=== PATIENT | female | born 1975 | race Caucasian/White ===

== ENCOUNTER 2020-03-06 08:02 | Emergency (ER) | payer MEDICAID ==
[~2020-03-06] VITALS: Ht 160 cm; Wt 81.5 kg
[2020-03-06] MEDS ORDERED: normal saline 1000ML IV soln IVB ONE (08:45)
[2020-03-06] MEDS ORDERED: pantoprazole 40 MG vial IV ONE (08:45)
[2020-03-06] MEDS ORDERED: ondansetron/PF 4mg/2ml inj IV ONE (08:45)
[2020-03-06] MEDS ORDERED: morphine 4 MG/ML inj SYRINge IV PRN (08:45)
[2020-03-06] MEDS ORDERED: famotidine/PF 10 mg/ml inj IV ONE (08:45)
[2020-03-06] MEDS ORDERED: LORazepam 2 mg/ml vial IV ONE (08:45)
[2020-03-06 08:56] LABS: CLARITY,URINE CLOUDY (Clear); COLOR,URINE YELLOW (Yellow); GLUCOSE, URINE NEGATIVE (Neg); KETONES,URINE NEGATIVE (Neg); LEUKOCYTE ESTERASE ,URINE SMALL (Neg); NITRITES, URINE POSITIVE (Neg); OCCULT BLOOD,URINE NEGATIVE (Neg); PROTEIN,URINE NEGATIVE (Neg); UROBILINOGEN,URINE 0.2 E.U/dL (0.2-1.0)
[2020-03-06 08:57] LABS: UA COLLECTION TYPE CLN CATCH MIDSTREAM; URINE HCG NEGATIVE (NEG)
[2020-03-06 09:03] LABS: AMORPHOUS PHOSPHATES 3+; BACTERIA,URINE 3+ /HPF (Neg); SQUAMOUS EPITHELIAL CELL,UR MODERATE /LPF (FEW)
[2020-03-06 09:04] LABS: WBC,URINE 30-50 /HPF (0-4)
[2020-03-06 09:05] LABS: RBC,URINE 0-2 /HPF (0-2); WBC CLUMPS,URINE FEW /HPF (NEGATIVE)
[2020-03-06 10:38] LABS: BASOPHILS % (AUTO) 0.5 % (0-1); EOSINOPHILS # (AUTO) 0.1 X10'3 (0-0.9); EOSINOPHILS % (AUTO) 0.6 % (0-6); HEMATOCRIT 41.7 % (35.0-45.0); HEMOGLOBIN 13.8 g/dl (12.0-16.0); LYMPHOCYTES % (AUTO) 12.3 % (21-51); MEAN CORPUSCULAR HEMOGLOBIN 30.2 PG (27.0-31.0); MEAN CORPUSCULAR HGB CONC 33.1 g/dL (33.0-36.5); MEAN CORPUSCULAR VOLUME 91.4 FL (78-98); MEAN PLATELET VOLUME 8.2 FL (7.4-10.4); MONOCYTES # (AUTO) 0.5 X10'3 (0-0.9); MONOCYTES % (AUTO) 6.2 % (2-12); NEUTROPHILS # (AUTO) 6.8 X10'3 (1.8-7.7); NEUTROPHILS % (AUTO) 80.4 % (42-75); PLATELET COUNT 280 X10'3 (140-440); RED BLOOD COUNT 4.57 X10'6 (4.20-5.60); RED CELL DISTRIBUTION WIDTH 13.3 % (11.5-14.5); WHITE BLOOD COUNT 8.4 X10'3 (4.5-11.0)
[2020-03-06 10:45] LABS: ALANINE AMINOTRANSFERASE 26 U/L (12-78); ALBUMIN 3.5 G/DL (3.4-5.0); ALBUMIN/GLOBULIN RATIO 0.9 (1.1-1.5); ALKALINE PHOSPHATASE 89 IU/L (46-116); ANION GAP 5 (8-16); ASPARTATE AMINO TRANSFERASE 32 U/L (10-37); BILIRUBIN,TOTAL 0.3 MG/DL (0.1-1.0); BLOOD UREA NITROGEN 15 MG/DL (7-18); BUN/CREATININE RATIO 15.8 (6.6-38.0); CALCIUM 8.3 MG/DL (8.5-10.1); CHLORIDE 105 MMOL/L (99-107); CREATININE 0.95 MG/DL (0.40-0.90); GLUCOSE 98 MG/DL (70-104); LIPASE 276 U/L (73-393); POTASSIUM 4.1 MMOL/L (3.5-5.1); SODIUM 136 MMOL/L (135-145); TOTAL CARBON DIOXIDE 25.9 MMOL/L (24-32); TOTAL PROTEIN 7.5 G/DL (6.4-8.2); eGFR 64 ML/MIN
[2020-03-06] MEDS ORDERED: LEVO500T2 PO (11:55)
[2020-03-06] MEDS ORDERED: HYDR-4353 PO (11:55)
[2020-03-06] MEDS ORDERED: ONDA4TAB6 PO (11:55)
[2020-03-06] MEDS ORDERED: KETO10TA2 PO (11:55)
[2020-03-06] MEDS ORDERED: ketorolac tromethamine 15mg/ml inj. IV ONE (12:05)
[2020-03-06] MEDS ORDERED: levoFLOXACIN 500mg tablet PO ONE (12:50)
[2020-03-06 13:39] VITALS: BP 112/74
[2020-03-07] MEDS ORDERED: levoFLOXACIN 500mg tablet PO SCH (11:00)
== END 2020-03-06 13:41 | disposition home or self-care (01) ==
LOC: ER 08:03
DX: N20.0 Calculus of kidney (principal); N39.0 Urinary tract infection, site not specified; K21.9 Gastro-esophageal reflux disease without esophagitis; F15.90 Other stimulant use, unspecified, uncomplicated; Z98.51 Tubal ligation status; Z98.890 Other specified postprocedural states; Z79.899 Other long term (current) drug therapy
CPT/HCPCS: 36415; 71045; 74176; 80053; 81001; 81025; 83605; 83690; 85025; 87077; 87088; 87186; 96361; 96374; 96375; 99285; C9113; J1885; J2060; J2270; J2405; J3490; J7030

== ENCOUNTER 2021-04-14 20:28 | Emergency (ER) | payer MEDICAID ==
[~2021-04-14] VITALS: Ht 160 cm; Wt 77.2 kg
[~2021-04-14 20:28] MED LIST: KETO10TA2 PO; ONDA4TAB6 PO
--- NOTE | 2021-04-14 21:32 | NUR ---
POISON CONTROL HAS BEEN CALLED. INSTRUCTED TO OBSERVE 6HR SINCE TIME OF ARRIVAL. ORDERS FOR EKG, TYLENOL LEVELS NOW AND AT 2330. ETOH LEVELS, INR, METABOLIC PANEL, AST/ALT, AND ASA. - [phone] - [id number].
[2021-04-14 21:54] LABS: BASOPHILS # (AUTO) 0.1 X10'3 (0-0.2); BASOPHILS % (AUTO) 0.5 % (0-1); EOSINOPHILS # (AUTO) 0.3 X10'3 (0-0.9); MEAN PLATELET VOLUME 9.1 FL (7.4-10.4); NEUTROPHILS # (AUTO) 9.7 X10'3 (1.8-7.7); WHITE BLOOD COUNT 12.4 X10'3 (4.5-11.0)
[2021-04-14 21:56] LABS: EOSINOPHILS % (AUTO) 2.6 % (0-6); HEMATOCRIT 35.5 % (35.0-45.0); HEMOGLOBIN 11.6 g/dl (12.0-16.0); LYMPHOCYTES # (AUTO) 1.7 X10'3 (1.1-4.8); LYMPHOCYTES % (AUTO) 13.5 % (21-51); MEAN CORPUSCULAR HEMOGLOBIN 27.8 PG (27.0-31.0); MEAN CORPUSCULAR HGB CONC 32.8 g/dL (33.0-36.5); MEAN CORPUSCULAR VOLUME 84.7 FL (78-98); MONOCYTES # (AUTO) 0.7 X10'3 (0-0.9); MONOCYTES % (AUTO) 5.6 % (2-12); NEUTROPHILS % (AUTO) 77.8 % (42-75); PLATELET COUNT 208 X10'3 (140-440); RED BLOOD COUNT 4.19 X10'6 (4.20-5.60); RED CELL DISTRIBUTION WIDTH 15.7 % (11.5-14.5)
[2021-04-14 21:58] LABS: ALANINE AMINOTRANSFERASE 20 U/L (12-78); ALBUMIN 3.3 G/DL (3.4-5.0); ALBUMIN/GLOBULIN RATIO 0.9 (1.1-1.5); ALKALINE PHOSPHATASE 99 IU/L (46-116); ANION GAP 5 (8-16); ASPARTATE AMINO TRANSFERASE 14 U/L (10-37); BILIRUBIN,TOTAL 0.2 MG/DL (0.1-1.0); BLOOD UREA NITROGEN 17 MG/DL (7-18); BUN/CREATININE RATIO 16.7 (6.6-38.0); CALCIUM 8.8 MG/DL (8.5-10.1); CHLORIDE 106 MMOL/L (99-107); CREATININE 1.02 MG/DL (0.40-0.90); GLUCOSE 96 MG/DL (70-104); POTASSIUM 3.9 MMOL/L (3.5-5.1); SODIUM 138 MMOL/L (135-145); TOTAL CARBON DIOXIDE 27.4 MMOL/L (24-32); TOTAL PROTEIN 7.1 G/DL (6.4-8.2); eGFR 58 ML/MIN
[2021-04-14 22:07] LABS: ETHANOL < 0.010 GM/DL (0.0-0.010)
[2021-04-14 22:15] LABS: ACETAMINOPHEN < 2.0 UG/ML (10-30)
[2021-04-14 23:06] LABS: CLARITY,URINE CLOUDY (Clear); COLOR,URINE YELLOW (Yellow); GLUCOSE, URINE NEGATIVE (Neg); KETONES,URINE NEGATIVE (Neg); OCCULT BLOOD,URINE NEGATIVE (Neg); PROTEIN,URINE NEGATIVE (Neg); UA COLLECTION TYPE CLN CATCH MIDSTREAM; URINE HCG NEGATIVE (NEG)
[2021-04-14 23:07] LABS: LEUKOCYTE ESTERASE ,URINE MODERATE (Neg); NITRITES, URINE POSITIVE (Neg); UROBILINOGEN,URINE 0.2 E.U/dL (0.2-1.0)
[2021-04-14 23:08] LABS: BACTERIA,URINE 4+ /HPF (Neg); RBC,URINE 0-2 /HPF (0-2); SQUAMOUS EPITHELIAL CELL,UR FEW /LPF (FEW); WBC CLUMPS,URINE MODERATE /HPF (NEGATIVE); WBC,URINE 50-100 /HPF (0-4)
--- NOTE | 2021-04-14 23:10 | NUR ---
PT IS SLEEPING COMFORTABLY, EQUAL RISE AND FALL OF CHEST
[2021-04-14 23:17] LABS: URINE AMPHETAMINE SCREEN POSITIVE (Neg); URINE BARBITUATE SCREEN NEGATIVE (Neg); URINE BENZODIAZEPINES SCREEN NEGATIVE (Neg); URINE CANNABINOID SCREEN POSITIVE (Neg); URINE COCAINE SCREEN NEGATIVE (Neg); URINE METHADONE SCREEN NEGATIVE (Neg); URINE OPIATE SCREEN POSITIVE (Neg); URINE PHENCYCLIDINE SCREEN NEGATIVE (Neg)
--- NOTE | 2021-04-15 00:30 | NUR ---
MD JENNINGS PERFORMED STRAIGHT STICK FROM RIGHT GROIN TO OBTAIN LABWORK REQUIRED. MULTIPLE ATTEMPTS WERE DONE BY PHLEBOTOMY AND 2 NURSES WITH ULTRASOUND.
--- NOTE | 2021-04-15 01:11 | NUR ---
CALL BACK FROM POISON CONTROL. INSTRUCTED TO GIVE MUCOMYST IF ACETAMINOPHEN LEVELS ARE EQUAL TO OR HIGHER THAN 120. AWARE
--- NOTE | 2021-04-15 02:09 | NUR ---
PT HAD SANDWICH AND APPLE JUICE. NOW RESTING COMFORTABLY. EQUAL RISE AND FALL OF CHEST.
--- NOTE | 2021-04-15 03:46 | NUR ---
PT IS SLEEPING COMFORTABLY WITH BLANKET. EQUAL RISE AND FALL OF CHEST.
[2021-04-15] MEDS ORDERED: cephalexin 500mg capsule PO ONE (08:00)
--- NOTE | 2021-04-15 08:12 | NUR ---
Spoke with Arnaud from Poison control, reviewed pts current tylenol level and poison control stated they would close the case.
--- NOTE | 2021-04-15 08:34 | NUR ---
Pt bed linens changed. Pt asssisted to BR to complete ADLs and adelaida care
--- NOTE | 2021-04-15 10:18 | NUR ---
Pt noted asleep resting comfortably, no distress noted
--- NOTE | 2021-04-15 12:44 | NUR ---
Patient is noted resting comfortably
--- NOTE | 2021-04-15 15:04 | NUR ---
Pt asleep, resting comfortably no distress noted
--- NOTE | 2021-04-15 17:48 | NUR ---
Pt noted resting comfortably, no distress noted
[2021-04-15] MEDS ORDERED: nicotine 21mg patch - 24 hr TD ONE (20:40)
--- NOTE | 2021-04-15 20:45 | NUR ---
Pt talking to mental health skin pass operator. ANNETTE.
--- NOTE | 2021-04-15 22:00 | NUR ---
Pt is asked for some tradzone to help with sleep. Pt is up walking around. NAD. Will talk to MD about medication.
--- NOTE | 2021-04-16 | NUR ---
Pt is currently sleeping. NAD.
--- NOTE | 2021-04-16 01:18 | NUR ---
Placed a call to [facility] at [phone]. Spoke to MICKY Virk. This nurse stated that they will call back in the morning with the information, as to who the accepting the doctor will be.
[2021-04-16] MEDS ORDERED: traZODone 50mg tablet PO SCH (01:33)
--- NOTE | 2021-04-16 02:00 | NUR ---
Pt is awake and states that she can not sleep. Pt asked for a cup of coffee. A cup of coffee was given. NAD.
--- NOTE | 2021-04-16 04:50 | NUR ---
Pt states that she can not sleep, due to another patient distrubing the peace. Pt is up at the nurse's station talking with the nurses.
[2021-04-16 05:45] VITALS: BP 103/77
--- NOTE | 2021-04-16 06:29 | NUR ---
Patient is awake in bed and keeps asking to go smoke. RN advises patient that this is not allowed. Patient leaving this morning to go to [facility]. Patient is asking for Trazodone. RN advised patient that we don't give sleeping medication in the morning. Patient verbalized understanding. Continue to monitor.
--- NOTE | 2021-04-16 06:39 | NUR ---
Patient poored her water on her bed because she wants security to come and give her a ciggarette and let her use the phone. Dr Peterson aware. Continue to monitor.
--- NOTE | 2021-04-16 06:40 | NUR ---
Patient has a coloring book and she tore out pages to sit on. RN gave patient a clean set of sheets so she can change her bed. Continue to monitor.
--- NOTE | 2021-04-16 06:51 | NUR ---
Patient againg asking for a cigarette. Continue to monitor.
--- NOTE | 2021-04-16 07:53 | NUR ---
Patient awake and laying in bed. Patient talking softly about going home and having her mom, sister or brother pick her up. Patient is pending admit to [facility]. RN performed a Covid swab and awaiting results. Continue to monitor.
--- NOTE | 2021-04-16 08:10 | NUR ---
Patient eating breakfast. No distress observed. Continue to monitor.
--- NOTE | 2021-04-16 09:15 | NUR ---
Patient sleeping supine. No distress observed. Continue to monitor.
== END 2021-04-16 10:20 ==
LOC: ER 20:28
DX: T14.91XA Suicide attempt, initial encounter (principal); N30.00 Acute cystitis without hematuria; K21.9 Gastro-esophageal reflux disease without esophagitis; T39.1X2A Poisoning by 4-Aminophenol derivatives, intentional self-harm, initial encounter; Z98.51 Tubal ligation status; Y92.89 Other specified places as the place of occurrence of the external cause; Z20.822 Contact with and (suspected) exposure to COVID-19; F15.10 Other stimulant abuse, uncomplicated
CPT/HCPCS: 36415; 80053; 80305; 80320; 80329; 81001; 81025; 84443; 85025; 85610; 87635; 93005; 99285; C9803

== ENCOUNTER 2022-04-02 11:52 | Emergency (ER) | payer MEDICAID ==
[~2022-04-02] VITALS: Ht 157.5 cm; Wt 68.0 kg
[2022-04-02] MEDS ORDERED: ondansetron 4mg rapidly disintigrating tab PO ONE (13:40)
[2022-04-02] MEDS ORDERED: acetaminophen 325mg tablet PO ONE (13:40)
[2022-04-02] MEDS ORDERED: morphine 4 MG/ML inj SYRINge IV ONE (13:50)
[2022-04-02] MEDS ORDERED: CefTRIAXone/D5W-Rocephin 1gm 50 ML IV ONE (14:55)
[2022-04-02 15:17] LABS: URINE HCG NEGATIVE (NEG)
[2022-04-02 15:32] LABS: COLOR,URINE YELLOW (Yellow); GLUCOSE, URINE NEGATIVE (Neg); KETONES,URINE TRACE mg/dl (Neg); LEUKOCYTE ESTERASE ,URINE MODERATE (Neg); NITRITES, URINE POSITIVE (Neg); OCCULT BLOOD,URINE SMALL (Neg); PROTEIN,URINE 30 mg/dl (Neg); UROBILINOGEN,URINE 0.2 E.U/dL (0.2-1.0)
[2022-04-02 15:43] LABS: BASOPHILS # (AUTO) 0.1 X10'3 (0-0.2); BASOPHILS % (AUTO) 0.4 % (0-1); LYMPHOCYTES # (AUTO) 1.3 X10'3 (1.1-4.8); MEAN PLATELET VOLUME 7.6 FL (7.4-10.4); NEUTROPHILS % (AUTO) 83.6 % (42-75); RED CELL DISTRIBUTION WIDTH 20.5 % (11.5-14.5); WHITE BLOOD COUNT 23.7 X10'3 (4.5-11.0)
[2022-04-02 15:45] LABS: EOSINOPHILS # (AUTO) 0.1 X10'3 (0-0.9); EOSINOPHILS % (AUTO) 0.4 % (0-6); HEMATOCRIT 24.7 % (35.0-45.0); HEMOGLOBIN 7.5 g/dl (12.0-16.0); LYMPHOCYTES % (AUTO) 5.7 % (21-51); MEAN CORPUSCULAR HEMOGLOBIN 20.9 PG (27.0-31.0); MEAN CORPUSCULAR HGB CONC 30.3 g/dL (33.0-36.5); MEAN CORPUSCULAR VOLUME 69.1 FL (78-98); MONOCYTES # (AUTO) 2.4 X10'3 (0-0.9); MONOCYTES % (AUTO) 9.9 % (2-12); NEUTROPHILS # (AUTO) 19.9 X10'3 (1.8-7.7); PLATELET COUNT 359 X10'3 (140-440); RED BLOOD COUNT 3.57 X10'6 (4.20-5.60)
[2022-04-02] MEDS ORDERED: normal saline 1000ml 1,000 ML IV ONE (15:45)
[2022-04-02 15:51] LABS: UA COLLECTION TYPE CLN CATCH MIDSTREAM
[2022-04-02 15:52] LABS: CLARITY,URINE CLOUDY (Clear)
[2022-04-02 15:54] LABS: WBC,URINE 30-50 /HPF (0-4)
[2022-04-02 15:55] LABS: ALANINE AMINOTRANSFERASE 20 U/L (12-78); ALBUMIN 2.7 G/DL (3.4-5.0); ALBUMIN/GLOBULIN RATIO 0.7 (1.1-1.5); ALKALINE PHOSPHATASE 85 IU/L (46-116); ANION GAP 8 (8-16); ASPARTATE AMINO TRANSFERASE 19 U/L (10-37); BILIRUBIN,TOTAL 0.3 MG/DL (0.1-1.0); BLOOD UREA NITROGEN 15 MG/DL (7-18); CALCIUM 7.9 MG/DL (8.5-10.1); CHLORIDE 103 MMOL/L (99-107); CREATININE 1.25 MG/DL (0.40-0.90); GLUCOSE 99 MG/DL (70-104); LIPASE 56 U/L (73-393); POTASSIUM 3.2 MMOL/L (3.5-5.1); SODIUM 136 MMOL/L (135-145); TOTAL CARBON DIOXIDE 24.6 MMOL/L (24-32); TOTAL PROTEIN 6.5 G/DL (6.4-8.2); eGFR 46 ML/MIN
[2022-04-02 15:55] LABS: BACTERIA,URINE 4+ /HPF (Neg); SQUAMOUS EPITHELIAL CELL,UR NONE SEEN /LPF (FEW); TRANSITIONAL EPI CELLS,URINE FEW /HPF; WBC CLUMPS,URINE MODERATE /HPF (NEGATIVE)
[2022-04-02] MEDS ORDERED: CEPH-585 PO (17:15)
[2022-04-02] MEDS ORDERED: ONDA8TAB13 PO (17:15)
[2022-04-02] MEDS ORDERED: normal saline 1000ML IV soln IVB ONE (17:25)
[2022-04-02 18:39] VITALS: BP 91/50
[2022-04-02 19:43] LABS: ANISOCYTOSIS 3+; MICROCYTOSIS 2+; PLATELET ESTIMATE NORMAL
[2022-04-02 19:44] LABS: POLYCHROMASIA 1+; SCHISTOCYTES FEW
== END 2022-04-02 18:41 | disposition home or self-care (01) ==
LOC: ER 11:53
DX: N39.0 Urinary tract infection, site not specified (principal); K59.00 Constipation, unspecified; K21.9 Gastro-esophageal reflux disease without esophagitis; F15.20 Other stimulant dependence, uncomplicated; Z98.890 Other specified postprocedural states; Z98.51 Tubal ligation status
CPT/HCPCS: 36415; 74176; 80053; 81001; 81025; 83690; 85008; 85025; 87077; 87088; 87186; 96365; 96375; 99284; J0696; J2270; J7030

== ENCOUNTER 2022-07-08 09:28 | Emergency (ER) | payer MEDICAID ==
[~2022-07-08] VITALS: Ht 160 cm; Wt 68.0 kg
[~2022-07-08 09:28] MED LIST changes: +CEPH-585 PO; +ONDA8TAB13 PO
--- NOTE | 2022-07-08 09:57 | NUR ---
pt is difficult stick aware of pt and complaint. he will see pt in lab draw station
[2022-07-08 10:32] LABS: ALANINE AMINOTRANSFERASE 28 U/L (12-78); ALBUMIN 3.6 G/DL (3.4-5.0); ALBUMIN/GLOBULIN RATIO 0.9 (1.1-1.5); ALKALINE PHOSPHATASE 91 IU/L (46-116); ANION GAP 12 (8-16); ASPARTATE AMINO TRANSFERASE 42 U/L (10-37); BILIRUBIN,TOTAL 0.2 MG/DL (0.1-1.0); BLOOD UREA NITROGEN 12 MG/DL (7-18); CALCIUM 8.6 MG/DL (8.5-10.1); CHLORIDE 103 MMOL/L (99-107); CREATININE 0.92 MG/DL (0.40-0.90); GLUCOSE 87 MG/DL (70-104); LIPASE 196 U/L (73-393); POTASSIUM 4.8 MMOL/L (3.5-5.1); SODIUM 138 MMOL/L (135-145); TOTAL CARBON DIOXIDE 22.9 MMOL/L (24-32); TOTAL PROTEIN 7.7 G/DL (6.4-8.2); eGFR 65 ML/MIN
[2022-07-08 10:48] LABS: CLARITY,URINE CLOUDY (Clear); COLOR,URINE YELLOW (Yellow); GLUCOSE, URINE NEGATIVE (Neg); KETONES,URINE NEGATIVE (Neg); LEUKOCYTE ESTERASE ,URINE NEGATIVE (Neg); NITRITES, URINE POSITIVE (Neg); OCCULT BLOOD,URINE NEGATIVE (Neg); PH,URINE 7.5 (4.8-8.0); PROTEIN,URINE NEGATIVE (Neg); UROBILINOGEN,URINE 0.2 E.U/dL (0.2-1.0)
[2022-07-08 10:49] LABS: UA COLLECTION TYPE CLN CATCH MIDSTREAM
[2022-07-08 10:50] LABS: URINE HCG NEGATIVE (NEG)
[2022-07-08 10:54] LABS: BACTERIA,URINE 4+ /HPF (Neg); MUCUS STRANDS NONE SEEN /LPF (Neg); RBC,URINE NONE SEEN /HPF (0-2); SQUAMOUS EPITHELIAL CELL,UR FEW /LPF (FEW); WBC CLUMPS,URINE FEW /HPF (NEGATIVE)
[2022-07-08] MEDS ORDERED: mag hydrox/Alum hydrox/simeth 30ml oral suspension PO ONE (11:00)
[2022-07-08] MEDS ORDERED: LIDOcaine Viscous 15ml cup MM PRN (11:00)
[2022-07-08] MEDS ORDERED: CefTRIAXone 1000mg IM Kit (w/lidocaine diluent) IM ONE (11:15)
[2022-07-08] MEDS ORDERED: NITR100C6 PO (11:17)
[2022-07-08] MEDS ORDERED: CefTRIAXone/D5W-Rocephin 1gm 50 ML IV ONE (11:20)
[2022-07-08 11:42] LABS: BASOPHILS # (AUTO) 0.1 X10'3 (0-0.2); BASOPHILS % (AUTO) 0.8 % (0-1); EOSINOPHILS % (AUTO) 0.6 % (0-6); HEMATOCRIT 32.4 % (35.0-45.0); HEMOGLOBIN 9.8 g/dl (12.0-16.0); LYMPHOCYTES # (AUTO) 1.9 X10'3 (1.1-4.8); LYMPHOCYTES % (AUTO) 28.2 % (21-51); MEAN CORPUSCULAR HEMOGLOBIN 21.9 PG (27.0-31.0); MEAN CORPUSCULAR HGB CONC 30.3 g/dL (33.0-36.5); MEAN CORPUSCULAR VOLUME 72.2 FL (78-98); MEAN PLATELET VOLUME 7.3 FL (7.4-10.4); MONOCYTES # (AUTO) 0.4 X10'3 (0-0.9); MONOCYTES % (AUTO) 6.4 % (2-12); NEUTROPHILS # (AUTO) 4.3 X10'3 (1.8-7.7); PLATELET COUNT 380 X10'3 (140-440); RED BLOOD COUNT 4.48 X10'6 (4.20-5.60); RED CELL DISTRIBUTION WIDTH 20.3 % (11.5-14.5); WHITE BLOOD COUNT 6.7 X10'3 (4.5-11.0)
[2022-07-08 12:01] LABS: PLATELET ESTIMATE NORMAL
[2022-07-08 12:02] LABS: ANISOCYTOSIS 3+; ELLIPTOCYTES FEW; HYPOCHROMASIA 1+; MICROCYTOSIS 1+; STOMATOCYTES FEW; TEAR DROP CELLS 1+
[2022-07-08 12:18] VITALS: BP 133/82
== END 2022-07-08 12:19 | disposition home or self-care (01) ==
LOC: ER 09:29
DX: N39.0 Urinary tract infection, site not specified (principal); D50.9 Iron deficiency anemia, unspecified; K21.9 Gastro-esophageal reflux disease without esophagitis; F15.10 Other stimulant abuse, uncomplicated; Z87.448 Personal history of other diseases of urinary system; Z79.899 Other long term (current) drug therapy; Z79.1 Long term (current) use of non-steroidal anti-inflammatories (NSAID)
CPT/HCPCS: 36415; 80053; 81001; 81025; 83690; 85008; 85025; 87077; 87088; 87186; 96365; 99284; J0696; J7030; 93005

== ENCOUNTER 2022-08-15 08:16 | Inpatient (IN) | payer MEDICAID ==
[2022-08-15] VITALS (19 sets, daily range): BP systolic 119–154; BP diastolic 47–100
[~2022-08-15] VITALS: Ht 160 cm; Wt 65.0 kg
[~2022-08-15 08:16] MED LIST changes: +NITR100C6 PO
[2022-08-15 08:52] LABS: BASOPHILS % (AUTO) 0.6 % (0-1); EOSINOPHILS # (AUTO) 0.3 X10'3 (0-0.9); EOSINOPHILS % (AUTO) 4.5 % (0-6); HEMATOCRIT 40.1 % (35.0-45.0); HEMOGLOBIN 12.5 g/dl (12.0-16.0); LYMPHOCYTES # (AUTO) 3.2 X10'3 (1.1-4.8); LYMPHOCYTES % (AUTO) 41.3 % (21-51); MEAN CORPUSCULAR HEMOGLOBIN 23.6 PG (27.0-31.0); MEAN CORPUSCULAR HGB CONC 31.1 g/dL (33.0-36.5); MEAN PLATELET VOLUME 7.3 FL (7.4-10.4); MONOCYTES # (AUTO) 0.6 X10'3 (0-0.9); MONOCYTES % (AUTO) 7.5 % (2-12); NEUTROPHILS # (AUTO) 3.5 X10'3 (1.8-7.7); NEUTROPHILS % (AUTO) 46.1 % (42-75); PLATELET COUNT 326 X10'3 (140-440); RED BLOOD COUNT 5.28 X10'6 (4.20-5.60); RED CELL DISTRIBUTION WIDTH 23.1 % (11.5-14.5); WHITE BLOOD COUNT 7.7 X10'3 (4.5-11.0)
[2022-08-15 08:57] LABS: CLARITY,URINE CLOUDY (Clear); COLOR,URINE YELLOW (Yellow); GLUCOSE, URINE NEGATIVE (Neg); KETONES,URINE NEGATIVE (Neg); LEUKOCYTE ESTERASE ,URINE NEGATIVE (Neg); NITRITES, URINE POSITIVE (Neg); OCCULT BLOOD,URINE NEGATIVE (Neg); PROTEIN,URINE NEGATIVE (Neg); UROBILINOGEN,URINE 0.2 E.U/dL (0.2-1.0)
[2022-08-15 09:00] LABS: UA COLLECTION TYPE CLN CATCH MIDSTREAM
[2022-08-15 09:03] LABS: HYALINE CASTS 0-3 /LPF (NEGATIVE); MUCUS STRANDS FEW /LPF (Neg)
[2022-08-15 09:04] LABS: BACTERIA,URINE 3+ /HPF (Neg); RBC,URINE 0-2 /HPF (0-2); URINE HCG NEGATIVE (NEG)
[2022-08-15 09:05] LABS: WBC CLUMPS,URINE MODERATE /HPF (NEGATIVE)
[2022-08-15 09:06] LABS: TRANSITIONAL EPI CELLS,URINE FEW /HPF
[2022-08-15 09:07] LABS: SQUAMOUS EPITHELIAL CELL,UR MODERATE /LPF (FEW)
[2022-08-15 09:13] LABS: ALANINE AMINOTRANSFERASE 38 U/L (12-78); ALBUMIN 3.7 G/DL (3.4-5.0); ALBUMIN/GLOBULIN RATIO 0.9 (1.1-1.5); ALKALINE PHOSPHATASE 113 IU/L (46-116); ANION GAP 8 (8-16); ASPARTATE AMINO TRANSFERASE 35 U/L (10-37); BILIRUBIN,TOTAL 0.1 MG/DL (0.1-1.0); BLOOD UREA NITROGEN 13 MG/DL (7-18); BUN/CREATININE RATIO 15.1 (6.6-38.0); CALCIUM 8.8 MG/DL (8.5-10.1); CHLORIDE 105 MMOL/L (99-107); CREATININE 0.86 MG/DL (0.40-0.90); GLUCOSE 95 MG/DL (70-104); LIPASE 195 U/L (73-393); POTASSIUM 4.4 MMOL/L (3.5-5.1); SODIUM 140 MMOL/L (135-145); TOTAL CARBON DIOXIDE 26.6 MMOL/L (24-32); TOTAL PROTEIN 7.9 G/DL (6.4-8.2); eGFR 71 ML/MIN
[2022-08-15 09:59] LABS: ANISOCYTOSIS 3+; HYPOCHROMASIA 1+; MICROCYTOSIS 1+; PLATELET ESTIMATE NORMAL
[2022-08-15] MEDS ORDERED: CefTRIAXone 2gm/D5W 50ml BAG 50 ML IV ONE (10:20)
[2022-08-15] MEDS ORDERED: normal saline 1000ML IV soln IV ONE (10:20)
[2022-08-15] MEDS ORDERED: magnesium 4gm in 100ml NS 100 ML IV PRN (11:30)
[2022-08-15] MEDS ORDERED: potassium Cl 20 mEq SR tablet PO PRN ×2 (11:30)
[2022-08-15] MEDS ORDERED: ondansetron/PF 4mg/2ml inj IV PRN ×2 (11:30→15:30)
[2022-08-15] MEDS ORDERED: mag hydrox/Alum hydrox/simeth 30ml oral suspension PO PRN (11:30)
[2022-08-15] MEDS ORDERED: potassium Cl 40MEQ/1/2NS 520ml 520 ML IV PRN (11:30)
[2022-08-15] MEDS ORDERED: magnesium hydroxide 30ml (MOM) UD suspension PO PRN (11:30)
[2022-08-15] MEDS ORDERED: magnesium Cl slow-release 64mg tablet PO PRN (11:30)
[2022-08-15] MEDS ORDERED: acetaminophen 325mg tablet PO PRN (11:30)
[2022-08-15] MEDS ORDERED: NO HOME MEDS (12:55)
[2022-08-15] MEDS: normal saline 1000ml 1,000 ML IV SCH ×2 (13:00→22:40)
[2022-08-15] MEDS ORDERED: labetalol 20mg/4ml (5mg/ml) syringe IV PRN (15:30)
[2022-08-15] MEDS ORDERED: morphine 4 MG/ML inj SYRINge IV PRN (15:30)
[2022-08-15] MEDS ORDERED: morphine 2 MG/ML inj. syringe IV PRN (15:30)
[2022-08-15] MEDS ORDERED: fentaNYL/PF 50MCG/1 ML 2ML syringe IV PRN ×2 (15:30)
[2022-08-15] MEDS ORDERED: hydrALAZINE 20mg/ml inj. IV PRN (15:30)
[2022-08-15] MEDS ORDERED: ringers solution, lacted 1,000 ML IV SCH (15:30)
[2022-08-15] MEDS ORDERED: BUPIVAcaine 0.5% inj/PF 30 ML ONE (15:54)
[2022-08-15] MEDS ORDERED: fentaNYL/PF 50MCG/1 ML 2ML syringe ONE (15:59)
[2022-08-15] MEDS ORDERED: midazolam 1 mg/ML 2ml injection ONE (15:59)
[2022-08-15] MEDS ORDERED: propofol inj 20 ML IV ONE (16:00)
[2022-08-15] MEDS ORDERED: ondansetron/PF 4mg/2ml inj ONE (16:01)
[2022-08-15] MEDS ORDERED: rocuronium 10mg/ml inj IV ONE (16:01)
[2022-08-15] MEDS ORDERED: dexamethasone sod phosphate 4mg/ml inj. ONE (16:01)
[2022-08-15] MEDS ORDERED: glycopyrrolate 0.2mg/ml inj ONE (16:37)
[2022-08-15] MEDS ORDERED: sevoflurane 250ml liquid IH ONE (16:37)
[2022-08-15] MEDS ORDERED: labetalol 20mg/4ml (5mg/ml) syringe IV ONE (16:37)
[2022-08-15] MEDS ORDERED: LIDOcaine 2% (20mg/ml) 5ml vial ONE (16:37)
[2022-08-15] MEDS ORDERED: neostigmine methylsulfate 1 MG/ML 10ml vial ONE (16:37)
[2022-08-15] MEDS ORDERED: ceFAZolin 1000mg inj ONE ×2 (17:00)
[2022-08-15] MEDS ORDERED: BUPIVAcaine 0.5% inj/PF 30 ml vial IJ ONE (17:19)
[2022-08-15] MEDS ORDERED: naloxone 0.4 mg/ml inj IV PRN (17:55)
[2022-08-15] MEDS ORDERED: acetaminophen 1,000mg/100ml IV 100 ML IV STA (18:50)
[2022-08-15] MEDS ORDERED: ketorolac trometh. 30mg/ml inj. IV STA (18:51)
--- NOTE | 2022-08-15 19:41 | NUR ---
PATIENT MEETS DISCHARGE CRITERIA. VSS. DANA HAS MINIMAL DRAINAGE. INCISION WITH BAND AID IN TACT. PAIN LEVEL TOLERABLE. CALLED REPORT TO RN. TOOK PATIENT WITH HER PURSE, TWO BAGS, AND HER DENTURES TO MED/SURG. STARTED V/S AND CHECKED WITH CHARGE NURSE. HER NURSE I GAVE REPORT TO WAS UNAVAILABLE. BED LOWERED LOCKED AND CALL LIGHT WITHIN REACH.
--- NOTE | 2022-08-15 20:14 | NUR ---
Received from OR via , accompanied by Anesthesiologist DR NARAYAN and report given by Anesthesiolgist. VSS BUT B/P IS SLIGHTLY ELEVATED. IV IN RIGHT FOREARM 20 INTACT. MASK ON 10 LITERS. DANA DRAIN ON RIGHT UPPER ABD. INCISION WITH BANDAGE MID ABD. Addendum: 08/15/22 at 2017 by Roslyn Thomas RN Amended: Links added. Addendum: 08/15/22 at 2018 by Roslyn Thomas RN TIME ADJUSTMENT. PATIENT CAME AT 175 NOT 2016
[2022-08-15] MEDS: K and/or MAG REPLACEMENT MC SCH (21:00)
[2022-08-15] MEDS: docusate sod 100mg capsule PO SCH (22:00)
[2022-08-15] MEDS: HYDROcodone/acetaminophen 10/325mg tab PO PRN (22:41)
[2022-08-16 00:16] VITALS: BP 152/89
[2022-08-16 02:00] VITALS: BP 145/71
[2022-08-16] MEDS: HYDROcodone/acetaminophen 10/325mg tab PO PRN ×3 (02:21→10:18)
[2022-08-16 06:00] VITALS: BP 145/94
[2022-08-16 06:14] LABS: ALANINE AMINOTRANSFERASE 131 U/L (12-78); ALBUMIN 2.9 G/DL (3.4-5.0); ALBUMIN/GLOBULIN RATIO 0.7 (1.1-1.5); ALKALINE PHOSPHATASE 115 IU/L (46-116); ANION GAP 10 (8-16); ASPARTATE AMINO TRANSFERASE 135 U/L (10-37); BILIRUBIN,TOTAL 0.2 MG/DL (0.1-1.0); BLOOD UREA NITROGEN 10 MG/DL (7-18); CALCIUM 8.1 MG/DL (8.5-10.1); CHLORIDE 106 MMOL/L (99-107); GLUCOSE 121 MG/DL (70-104); MAGNESIUM 1.8 MG/DL (1.5-2.4); POTASSIUM 4.5 MMOL/L (3.5-5.1); SODIUM 136 MMOL/L (135-145); TOTAL CARBON DIOXIDE 19.7 MMOL/L (24-32); TOTAL PROTEIN 6.9 G/DL (6.4-8.2); eGFR 59 ML/MIN
--- NOTE | 2022-08-16 06:38 | NUR ---
Patient in room [facility]. I have received report from September and had the opportunity to ask questions and assume patient care.
[2022-08-16 07:18] LABS: BASOPHILS % (AUTO) 0.1 % (0-1); EOSINOPHILS % (AUTO) 0 % (0-6); HEMATOCRIT 36.1 % (35.0-45.0); HEMOGLOBIN 11.4 g/dl (12.0-16.0); LYMPHOCYTES % (AUTO) 18.8 % (21-51); MEAN CORPUSCULAR HGB CONC 31.7 g/dL (33.0-36.5); MEAN CORPUSCULAR VOLUME 75.7 FL (78-98); MEAN PLATELET VOLUME 7.9 FL (7.4-10.4); MONOCYTES # (AUTO) 0.6 X10'3 (0-0.9); MONOCYTES % (AUTO) 5.5 % (2-12); NEUTROPHILS # (AUTO) 7.9 X10'3 (1.8-7.7); NEUTROPHILS % (AUTO) 75.6 % (42-75); PLATELET COUNT 288 X10'3 (140-440); RED BLOOD COUNT 4.76 X10'6 (4.20-5.60); RED CELL DISTRIBUTION WIDTH 22.7 % (11.5-14.5); WHITE BLOOD COUNT 10.4 X10'3 (4.5-11.0)
[2022-08-16] MEDS: K and/or MAG REPLACEMENT MC SCH (07:24)
[2022-08-16] MEDS: normal saline 1000ml 1,000 ML IV SCH (07:33)
[2022-08-16] MEDS: docusate sod 100mg capsule PO SCH (07:34)
[2022-08-16] MEDS ORDERED: CefTRIAXone/D5W-Rocephin 1gm 50 ML IV SCH (08:00)
[2022-08-16 08:18] LABS: PLATELET ESTIMATE NORMAL
[2022-08-16 08:19] LABS: ANISOCYTOSIS 3+; LARGE PLATELETS FEW; MICROCYTOSIS 1+
[2022-08-16 08:57] VITALS: BP 147/78
[2022-08-16] MEDS ORDERED: HYDROmorphone inj. 0.5 MG/0.5 ML DISP.SYRIN IV PRN (09:10)
[2022-08-16] MEDS ORDERED: HYDR-3965 PO (09:10)
[2022-08-16 11:00] VITALS: BP 118/74
--- NOTE | 2022-08-16 12:36 | NUR ---
PIV DC intact hemostasis achieved. Catheter intact
--- NOTE | 2022-08-16 14:52 | NUR ---
Reviewed discharge instructions with patient. Patient verbalized understanding. Patient was able to dress herself and gather her belongings. Patient waited in her room for her mother to pick her up. Patient was given the Rx for pain medication. A copy of the Rx was placed in the chart. Patient was wheeled downstairs to be driven home by her mother.
== END 2022-08-16 14:42 | disposition home or self-care (01) | DRG 263 ==
LOC: ER 08:16 → ED HOLD 11:30 → SUR 3N 18:35
PROVIDERS: ADMIT Family Medicine; ATTEND Family Medicine
PROC: 0FT44ZZ Resection of Gallbladder, Percutaneous Endoscopic Approach (ICD-10-PCS; principal; 2022-08-15 16:37)
DX: K80.63 Calculus of gallbladder and bile duct with acute cholecystitis with obstruction (principal); F15.10 Other stimulant abuse, uncomplicated; F17.210 Nicotine dependence, cigarettes, uncomplicated; J45.909 Unspecified asthma, uncomplicated; N30.00 Acute cystitis without hematuria; K21.9 Gastro-esophageal reflux disease without esophagitis; K82.8 Other specified diseases of gallbladder; Z87.442 Personal history of urinary calculi; Z98.891 History of uterine scar from previous surgery; Z88.5 Allergy status to narcotic agent; Z98.51 Tubal ligation status; Z71.51 Drug abuse counseling and surveillance of drug abuser; Z71.6 Tobacco abuse counseling
CPT/HCPCS: 36415; 76700; 80053; 81001; 81025; 83690; 83735; 85008; 85025; 87077; 87081; 87088; 87186; 99285; A4215; A4618; A6213; A6258; A6402; A7000; G0378; J0131; J0690; J0696; J1100; J1885; J2250; J2270; J2405; J2704; J2710; J3010; J3490; J7030; J7042; J7120; S0020

== ENCOUNTER 2022-08-18 22:23 | Emergency (ER) | payer MEDICAID ==
[~2022-08-18] VITALS: Ht 160 cm; Wt 65.9 kg
[~2022-08-18 22:23] MED LIST changes: -CEPH-585 PO; +HYDR-3965 PO; -KETO10TA2 PO; -NITR100C6 PO; -ONDA4TAB6 PO; -ONDA8TAB13 PO
[2022-08-19] MEDS ORDERED: ondansetron/PF 4mg/2ml inj IV ONE (04:15)
[2022-08-19] MEDS ORDERED: normal saline 1000ML IV soln IVB ONE (04:15)
[2022-08-19] MEDS ORDERED: polyethylene glycol 3350 17gm powd pack PO SCH (05:36)
[2022-08-19 07:33] LABS: CLARITY,URINE CLEAR (Clear); COLOR,URINE STRAW (Yellow); GLUCOSE, URINE NEGATIVE (Neg); KETONES,URINE NEGATIVE (Neg); LEUKOCYTE ESTERASE ,URINE NEGATIVE (Neg); NITRITES, URINE NEGATIVE (Neg); OCCULT BLOOD,URINE NEGATIVE (Neg); PH,URINE 7.5 (4.8-8.0); PROTEIN,URINE NEGATIVE (Neg); UROBILINOGEN,URINE 0.2 E.U/dL (0.2-1.0)
[2022-08-19 07:35] LABS: UA COLLECTION TYPE VOIDED
[2022-08-19 07:38] VITALS: BP 113/67
[2022-08-19 07:53] LABS: ALANINE AMINOTRANSFERASE 264 U/L (12-78); ALBUMIN 3.3 G/DL (3.4-5.0); ALBUMIN/GLOBULIN RATIO 0.8 (1.1-1.5); ALKALINE PHOSPHATASE 133 IU/L (46-116); ANION GAP 7 (8-16); ASPARTATE AMINO TRANSFERASE 96 U/L (10-37); BASOPHILS # (AUTO) 0.1 X10'3 (0-0.2); BASOPHILS % (AUTO) 0.9 % (0-1); BILIRUBIN,TOTAL 0.2 MG/DL (0.1-1.0); BLOOD UREA NITROGEN 14 MG/DL (7-18); BUN/CREATININE RATIO 17.5 (6.6-38.0); CALCIUM 8.8 MG/DL (8.5-10.1); CHLORIDE 104 MMOL/L (99-107); EOSINOPHILS # (AUTO) 0.4 X10'3 (0-0.9); EOSINOPHILS % (AUTO) 5.8 % (0-6); GLUCOSE 78 MG/DL (70-104); HEMATOCRIT 35.4 % (35.0-45.0); HEMOGLOBIN 11.4 g/dl (12.0-16.0); LIPASE 125 U/L (73-393); LYMPHOCYTES # (AUTO) 2.8 X10'3 (1.1-4.8); LYMPHOCYTES % (AUTO) 45.8 % (21-51); MEAN CORPUSCULAR HEMOGLOBIN 23.9 PG (27.0-31.0); MEAN CORPUSCULAR VOLUME 74.7 FL (78-98); MEAN PLATELET VOLUME 7.5 FL (7.4-10.4); MONOCYTES # (AUTO) 0.4 X10'3 (0-0.9); MONOCYTES % (AUTO) 6.3 % (2-12); NEUTROPHILS # (AUTO) 2.5 X10'3 (1.8-7.7); NEUTROPHILS % (AUTO) 41.2 % (42-75); PLATELET COUNT 261 X10'3 (140-440); POTASSIUM 4.4 MMOL/L (3.5-5.1); RED BLOOD COUNT 4.74 X10'6 (4.20-5.60); SODIUM 140 MMOL/L (135-145); TOTAL CARBON DIOXIDE 28.6 MMOL/L (24-32); TOTAL PROTEIN 7.4 G/DL (6.4-8.2); WHITE BLOOD COUNT 6.1 X10'3 (4.5-11.0); eGFR 77 ML/MIN
[2022-08-19 09:41] LABS: PLATELET ESTIMATE NORMAL
[2022-08-19 09:42] LABS: ANISOCYTOSIS 3+; ELLIPTOCYTES FEW; MICROCYTOSIS 1+; STOMATOCYTES FEW; TEAR DROP CELLS FEW
== END 2022-08-19 09:00 | disposition home or self-care (01) ==
LOC: ER 22:23
DX: K59.00 Constipation, unspecified (principal); K21.9 Gastro-esophageal reflux disease without esophagitis; J45.909 Unspecified asthma, uncomplicated; F17.200 Nicotine dependence, unspecified, uncomplicated; Z98.890 Other specified postprocedural states; Z88.5 Allergy status to narcotic agent; Z90.49 Acquired absence of other specified parts of digestive tract; Z98.51 Tubal ligation status
CPT/HCPCS: 36415; 74018; 80053; 81003; 83690; 85008; 85025; 99284; J7030

== ENCOUNTER 2022-08-25 14:50 | Emergency (ER) | payer MEDICAID ==
[~2022-08-25] VITALS: Ht 160 cm; Wt 65.0 kg
[2022-08-25 15:15] VITALS: BP 100/61
== END 2022-08-25 16:09 | disposition home or self-care (01) ==
LOC: ER 15:10
DX: Z48.00 Encounter for change or removal of nonsurgical wound dressing (principal); K21.9 Gastro-esophageal reflux disease without esophagitis; J45.909 Unspecified asthma, uncomplicated; F15.10 Other stimulant abuse, uncomplicated; Z98.890 Other specified postprocedural states; Z87.442 Personal history of urinary calculi; Z88.5 Allergy status to narcotic agent; Z79.899 Other long term (current) drug therapy
CPT/HCPCS: 99281

== ENCOUNTER 2023-08-11 14:30 | Emergency (ER) | payer MEDICAID ==
[~2023-08-11] VITALS: Ht 160 cm; Wt 70.9 kg
[2023-08-11 14:42] VITALS: TEMP 97.9
[2023-08-11 16:02] LABS: BASOPHILS # (AUTO) 0.1 X10'3 (0-0.2); BASOPHILS % (AUTO) 1.1 % (0-1); EOSINOPHILS # (AUTO) 0.2 X10'3 (0-0.9); EOSINOPHILS % (AUTO) 3.7 % (0-6); HEMATOCRIT 45.1 % (35.0-45.0); LYMPHOCYTES # (AUTO) 2.7 X10'3 (1.1-4.8); LYMPHOCYTES % (AUTO) 46.5 % (21-51); MEAN CORPUSCULAR HEMOGLOBIN 30.5 PG (27.0-31.0); MEAN CORPUSCULAR HGB CONC 33.2 g/dL (33.0-36.5); MEAN CORPUSCULAR VOLUME 91.9 FL (78-98); MEAN PLATELET VOLUME 7.8 FL (7.4-10.4); MONOCYTES # (AUTO) 0.6 X10'3 (0-0.9); MONOCYTES % (AUTO) 10.7 % (2-12); NEUTROPHILS # (AUTO) 2.2 X10'3 (1.8-7.7); PLATELET COUNT 249 X10'3 (140-440); RED BLOOD COUNT 4.91 X10'6 (4.20-5.60); RED CELL DISTRIBUTION WIDTH 13.8 % (11.5-14.5); WHITE BLOOD COUNT 5.9 X10'3 (4.5-11.0)
[2023-08-11 16:34] LABS: ALBUMIN 3.6 G/DL (3.4-5.0); ANION GAP 10 (8-16); BLOOD UREA NITROGEN 17 MG/DL (7-18); BUN/CREATININE RATIO 19.8 (10.0-20.0); CALCIUM 8.4 MG/DL (8.5-10.1); CHLORIDE 108 MMOL/L (99-107); CREATININE 0.86 MG/DL (0.40-0.90); GLUCOSE 65 MG/DL (70-104); LIPASE 57 U/L (16-77); POTASSIUM 4.2 MMOL/L (3.5-5.1); SODIUM 143 MMOL/L (135-145); TOTAL CARBON DIOXIDE 24.8 MMOL/L (24-32); eCRCL 66 ML/MIN; eGFR 70 ML/MIN
[2023-08-11 19:07] VITALS: BP 91/66; PULSE 80; RESP 16; O2SAT 96
== END 2023-08-11 19:09 | disposition home or self-care (01) ==
LOC: ER 14:31
DX: R10.11 Right upper quadrant pain (principal); R10.13 Epigastric pain; K21.9 Gastro-esophageal reflux disease without esophagitis; F15.90 Other stimulant use, unspecified, uncomplicated; Z88.1 Allergy status to other antibiotic agents; Z88.5 Allergy status to narcotic agent; Z90.49 Acquired absence of other specified parts of digestive tract; Z98.51 Tubal ligation status; Z98.890 Other specified postprocedural states
CPT/HCPCS: 36415; 71045; 74176; 80048; 83690; 84484; 85025; 93005; 99285

== ENCOUNTER 2024-07-27 23:48 | Emergency (ER) | payer MEDICAID ==
[~2024-07-27] VITALS: Ht 160 cm; Wt 46.3 kg
[2024-07-28] MEDS ORDERED: RIFA300C65 PO (03:09)
[2024-07-28] MEDS ORDERED: AMOX-117 PO (03:09)
[2024-07-28] MEDS: TETanus/Pertussis (Acell)/Diphther VAC/PF (Tdap-Adult) 0.5ml syringe IMVAC ONE (03:25)
[2024-07-28] MEDS: rifampin 300mg capsule PO STA (03:26)
[2024-07-28] MEDS: amox tr/potassium clavulanate 875/125mg TAB PO ONE (03:26)
[2024-07-28] MEDS: LIDOcaine 1% W/epiNEPHrine 1:100,000 20ml vial IJ ONE (03:26)
[2024-07-28 04:38] VITALS: BP 111/69; PULSE 82; RESP 19; TEMP 98.3; O2SAT 97
[2024-07-28] MEDS: naproxen 500mg tablet PO ONE (04:47)
[2024-07-28] MEDS: HYDROcodone/acetaminophen 10/325mg tab PO ONE (04:47)
== END 2024-07-28 04:49 | disposition home or self-care (01) ==
LOC: ER 23:49
DX: L02.612 Cutaneous abscess of left foot (principal); L03.116 Cellulitis of left lower limb; J45.909 Unspecified asthma, uncomplicated; K21.9 Gastro-esophageal reflux disease without esophagitis; Z87.440 Personal history of urinary (tract) infections; F15.90 Other stimulant use, unspecified, uncomplicated; Z88.5 Allergy status to narcotic agent; Z88.1 Allergy status to other antibiotic agents; Z98.51 Tubal ligation status; Z90.49 Acquired absence of other specified parts of digestive tract; Z98.890 Other specified postprocedural states
CPT/HCPCS: 10060; 90471; 90715; 99284; A6449

== ENCOUNTER 2024-08-02 22:19 | Emergency (ER) | payer MEDICAID ==
[~2024-08-02] VITALS: Ht 160 cm; Wt 73.3 kg
[~2024-08-02 22:19] MED LIST changes: +AMOX-117 PO; -HYDR-3965 PO; +RIFA300C65 PO
[2024-08-02] MEDS ORDERED: SULF1TAB45 PO (22:44)
[2024-08-02] MEDS ORDERED: CEPH-585 PO (22:44)
[2024-08-02] MEDS: cephalexin 250mg capsule PO ONE (22:58)
[2024-08-02] MEDS: sulfamethoxazole/trimethoprim DS (800/160mg) tablet PO ONE (22:58)
[2024-08-02 23:03] VITALS: BP 124/84; PULSE 75; RESP 18; TEMP 98.6; O2SAT 98
== END 2024-08-02 23:04 | disposition home or self-care (01) ==
LOC: ER 22:20
DX: L02.612 Cutaneous abscess of left foot (principal); K21.9 Gastro-esophageal reflux disease without esophagitis; J45.909 Unspecified asthma, uncomplicated; F15.90 Other stimulant use, unspecified, uncomplicated; Z87.440 Personal history of urinary (tract) infections; Z88.5 Allergy status to narcotic agent; Z88.1 Allergy status to other antibiotic agents; Z98.51 Tubal ligation status; Z90.49 Acquired absence of other specified parts of digestive tract; Z79.2 Long term (current) use of antibiotics; Z98.890 Other specified postprocedural states
CPT/HCPCS: 87070; 87186; 99283

== ENCOUNTER 2024-08-27 15:45 | Inpatient (IN) | payer MEDICAID ==
[~2024-08-27] VITALS: Ht 160 cm; Wt 71.6 kg
[~2024-08-27 15:45] MED LIST changes: -AMOX-117 PO; +CEPH-585 PO
[2024-08-27 17:17] LABS: BILIRUBIN,URINE NEGATIVE (Neg); CLARITY,URINE CLEAR (Clear); COLOR,URINE YELLOW (Yellow); GLUCOSE, URINE NEGATIVE (Neg); KETONES,URINE NEGATIVE (Neg); LEUKOCYTE ESTERASE ,URINE TRACE (Neg); NITRITES, URINE POSITIVE (Neg); OCCULT BLOOD,URINE NEGATIVE (Neg); PH,URINE 6.5 (4.8-8.0); PROTEIN,URINE NEGATIVE (Neg); URINE HCG NEGATIVE (NEG); UROBILINOGEN,URINE 0.2 E.U/dL (0.2-1.0)
[2024-08-27 17:21] LABS: UA COLLECTION TYPE CLN CATCH MIDSTREAM
[2024-08-27 17:23] LABS: BACTERIA,URINE 4+ /HPF (Neg); RBC,URINE 0-2 /HPF (0-2); SQUAMOUS EPITHELIAL CELL,UR FEW /LPF (FEW); WBC,URINE 20-30 /HPF (0-4)
[2024-08-27 18:31] LABS: URINE AMPHETAMINE SCREEN POSITIVE (Neg); URINE BARBITUATE SCREEN NEGATIVE (Neg); URINE BENZODIAZEPINES SCREEN NEGATIVE (Neg); URINE CANNABINOID SCREEN POSITIVE (Neg); URINE COCAINE SCREEN NEGATIVE (Neg); URINE METHADONE SCREEN NEGATIVE (Neg); URINE OPIATE SCREEN NEGATIVE (Neg); URINE PHENCYCLIDINE SCREEN NEGATIVE (Neg)
[2024-08-27 18:31] LABS: APTT 26 SECONDS (22-32); PROTHROMBIN TIME 10.1 SECONDS (9.0-12.0)
[2024-08-27 18:33] LABS: ALANINE AMINOTRANSFERASE 21 U/L (12-78); ALBUMIN 3.9 G/DL (3.4-5.0); ALBUMIN/GLOBULIN RATIO 0.9 (1.1-1.5); ALKALINE PHOSPHATASE 101 IU/L (46-116); ANION GAP 7 (8-16); ASPARTATE AMINO TRANSFERASE 23 U/L (10-37); BILIRUBIN,TOTAL 0.2 MG/DL (0.1-1.0); BLOOD UREA NITROGEN 9 MG/DL (7-18); BUN/CREATININE RATIO 10.2 (10.0-20.0); C-REACTIVE PROTEIN 0.12 MG/DL (0.0-0.5); CHLORIDE 104 MMOL/L (99-107); CREATININE 0.88 MG/DL (0.40-0.90); GLUCOSE 72 MG/DL (70-104); MAGNESIUM 1.9 MG/DL (1.5-2.4); POTASSIUM 4.1 MMOL/L (3.5-5.1); SODIUM 141 MMOL/L (135-145); TOTAL CARBON DIOXIDE 29.8 MMOL/L (24-32); TOTAL PROTEIN 8.2 G/DL (6.4-8.2); eCRCL 64 ML/MIN; eGFR 68 ML/MIN
[2024-08-27] MEDS ORDERED: iohexol 300mg/ml 100ml inj. ONE (18:38)
[2024-08-27 18:48] LABS: BASOPHILS # (AUTO) 0.1 X10'3 (0-0.2); BASOPHILS % (AUTO) 0.9 % (0-1); EOSINOPHILS # (AUTO) 0.4 X10'3 (0-0.9); HEMATOCRIT 39.2 % (35.0-45.0); HEMOGLOBIN 13.5 g/dl (12.0-16.0); LYMPHOCYTES # (AUTO) 1.5 X10'3 (1.1-4.8); LYMPHOCYTES % (AUTO) 27.7 % (21-51); MEAN CORPUSCULAR HEMOGLOBIN 31.7 PG (27.0-31.0); MEAN CORPUSCULAR HGB CONC 34.4 g/dL (33.0-36.5); MEAN PLATELET VOLUME 7.8 FL (7.4-10.4); MONOCYTES # (AUTO) 0.6 X10'3 (0-0.9); MONOCYTES % (AUTO) 10.6 % (2-12); NEUTROPHILS # (AUTO) 2.9 X10'3 (1.8-7.7); NEUTROPHILS % (AUTO) 53.8 % (42-75); PLATELET COUNT 227 X10'3 (140-440); RED BLOOD COUNT 4.26 X10'6 (4.20-5.60); RED CELL DISTRIBUTION WIDTH 13.2 % (11.5-14.5); WHITE BLOOD COUNT 5.4 X10'3 (4.5-11.0)
[2024-08-27 18:57] LABS: HCG SERUM QL NEGATIVE
[2024-08-27] MEDS: morphine 4 MG/ML inj SYRINge IV ONE (20:21)
[2024-08-27] MEDS ORDERED: NO HOME MEDS (20:53)
[2024-08-27] MEDS ORDERED: potassium Cl 40MEQ/1/2NS 520ml 520 ML IV PRN (21:30)
[2024-08-27] MEDS ORDERED: magnesium sulf-water 4G/100mL 100 ML IV PRN (21:30)
[2024-08-27] MEDS ORDERED: magnesium sulf-water 2g/50mL 50 ML IV PRN (21:30)
[2024-08-27] MEDS ORDERED: ondansetron/PF 4mg/2ml inj IV PRN (21:30)
[2024-08-27] MEDS ORDERED: acetaminophen 325mg tablet PO PRN (21:30)
[2024-08-27] MEDS ORDERED: potassium Cl 20 mEq SR tablet PO PRN ×2 (21:30)
[2024-08-27] MEDS ORDERED: magnesium Cl slow-release 64mg tablet PO PRN (21:30)
[2024-08-27] MEDS ORDERED: mag hydrox/Alum hydrox/simeth 30ml oral suspension PO PRN (21:30)
[2024-08-27] MEDS: clindamycin 300mg/D5W 50mL 50 ML IV SCH (22:00)
[2024-08-27 22:01] LABS: PRO BRAIN NATRIURETIC PEPTIDE 92 PG/ML (0-125)
[2024-08-27] MEDS: normal saline 1000ml 1,000 ML IV SCH (22:01)
[2024-08-28] MEDS: ciprofloxacin lact 400MG/200ML 200 ML IV SCH (02:19)
[2024-08-28] MEDS: nicotine 14mg patch - 24hr TD ONE (02:20)
[2024-08-28] MEDS: vancomycin/NS 1 GM ADD-VANTAGE 250 ML IV ONE (02:37)
[2024-08-28 03:04] LABS: BASOPHILS % (AUTO) 0.8 % (0-1); EOSINOPHILS # (AUTO) 0.3 X10'3 (0-0.9); EOSINOPHILS % (AUTO) 6.6 % (0-6); HEMATOCRIT 35.6 % (35.0-45.0); HEMOGLOBIN 12.1 g/dl (12.0-16.0); LYMPHOCYTES # (AUTO) 1.1 X10'3 (1.1-4.8); MEAN CORPUSCULAR HEMOGLOBIN 31.5 PG (27.0-31.0); MEAN CORPUSCULAR HGB CONC 33.9 g/dL (33.0-36.5); MEAN CORPUSCULAR VOLUME 93.1 FL (78-98); MEAN PLATELET VOLUME 7.5 FL (7.4-10.4); MONOCYTES # (AUTO) 0.4 X10'3 (0-0.9); MONOCYTES % (AUTO) 9.6 % (2-12); NEUTROPHILS # (AUTO) 2.5 X10'3 (1.8-7.7); PLATELET COUNT 214 X10'3 (140-440); RED BLOOD COUNT 3.82 X10'6 (4.20-5.60); RED CELL DISTRIBUTION WIDTH 13.5 % (11.5-14.5); WHITE BLOOD COUNT 4.4 X10'3 (4.5-11.0)
[2024-08-28 03:20] LABS: ALANINE AMINOTRANSFERASE 115 U/L (12-78); ALBUMIN 2.7 G/DL (3.4-5.0); ALBUMIN/GLOBULIN RATIO 0.9 (1.1-1.5); ALKALINE PHOSPHATASE 92 IU/L (46-116); ANION GAP 5 (8-16); ASPARTATE AMINO TRANSFERASE 186 U/L (10-37); BILIRUBIN,TOTAL 0.1 MG/DL (0.1-1.0); BLOOD UREA NITROGEN 9 MG/DL (7-18); BUN/CREATININE RATIO 10.6 (10.0-20.0); CALCIUM 7.7 MG/DL (8.5-10.1); CHLORIDE 109 MMOL/L (99-107); CREATININE 0.85 MG/DL (0.40-0.90); GLUCOSE 108 MG/DL (70-104); MAGNESIUM 1.6 MG/DL (1.5-2.4); POTASSIUM 3.7 MMOL/L (3.5-5.1); SODIUM 143 MMOL/L (135-145); TOTAL PROTEIN 5.8 G/DL (6.4-8.2); eCRCL 66 ML/MIN; eGFR 71 ML/MIN
[2024-08-28] MEDS: docusate sod 100mg capsule PO SCH (07:34)
[2024-08-28] MEDS: K and/or MAG REPLACEMENT MC SCH (07:34)
[2024-08-28] MEDS: nicotine 14mg patch - 24hr TD SCH (08:10)
[2024-08-28] MEDS: lactobacillus rhamnosus 10,000 MMU CELLS/CAPSULE PO SCH (08:11)
[2024-08-28] MEDS: pantoprazole 40mg Tablet.DR PO SCH (08:11)
[2024-08-28] MEDS: metroNIDAZOLE-Flagyl 500mg/NS 100 ML IV SCH (08:14)
[2024-08-28] MEDS: heparin, porcine 5000 units/ml vial SQ SCH (08:15)
[2024-08-28] MEDS: acetaminophen 325mg tablet PO PRN (10:34)
[2024-08-28] MEDS: VANCOMYCIN LEVEL IV ONE (13:30)
[2024-08-28] MEDS: vancomycin/NS 1 GM ADD-VANTAGE 250 ML IV SCH (15:45)
[2024-08-28 18:00] VITALS: BP 108/69; PULSE 79; RESP 19; TEMP 97.7; O2SAT 100
[2024-08-28 20:00] VITALS: RESP 19; O2SAT 100
[2024-08-28] MEDS: HYDROcodone/acetaminophen 5mg/325mg tablet PO PRN (21:40)
[2024-08-28 22:00] VITALS: BP 106/65; PULSE 84; RESP 16; TEMP 97.9; O2SAT 97
[2024-08-29 06:00] VITALS: BP 104/66; PULSE 77; RESP 16; TEMP 98.7; O2SAT 90
[2024-08-29 06:18] LABS: BASOPHILS % (AUTO) 0.9 % (0-1); EOSINOPHILS # (AUTO) 0.2 X10'3 (0-0.9); EOSINOPHILS % (AUTO) 6.4 % (0-6); HEMATOCRIT 36.5 % (35.0-45.0); HEMOGLOBIN 12.4 g/dl (12.0-16.0); LYMPHOCYTES # (AUTO) 1.2 X10'3 (1.1-4.8); LYMPHOCYTES % (AUTO) 31.9 % (21-51); MEAN CORPUSCULAR HEMOGLOBIN 31.9 PG (27.0-31.0); MEAN CORPUSCULAR HGB CONC 34.1 g/dL (33.0-36.5); MEAN CORPUSCULAR VOLUME 93.5 FL (78-98); MEAN PLATELET VOLUME 7.5 FL (7.4-10.4); MONOCYTES # (AUTO) 0.5 X10'3 (0-0.9); MONOCYTES % (AUTO) 12.6 % (2-12); NEUTROPHILS # (AUTO) 1.8 X10'3 (1.8-7.7); NEUTROPHILS % (AUTO) 48.2 % (42-75); PLATELET COUNT 217 X10'3 (140-440); RED BLOOD COUNT 3.91 X10'6 (4.20-5.60); RED CELL DISTRIBUTION WIDTH 13.6 % (11.5-14.5); WHITE BLOOD COUNT 3.7 X10'3 (4.5-11.0)
[2024-08-29 06:48] LABS: ALANINE AMINOTRANSFERASE 91 U/L (12-78); ALBUMIN 2.8 G/DL (3.4-5.0); ALBUMIN/GLOBULIN RATIO 0.9 (1.1-1.5); ALKALINE PHOSPHATASE 89 IU/L (46-116); ANION GAP 4 (8-16); ASPARTATE AMINO TRANSFERASE 49 U/L (10-37); BILIRUBIN,TOTAL 0.2 MG/DL (0.1-1.0); BLOOD UREA NITROGEN 10 MG/DL (7-18); BUN/CREATININE RATIO 11.9 (10.0-20.0); CHLORIDE 106 MMOL/L (99-107); CREATININE 0.84 MG/DL (0.40-0.90); GLUCOSE 87 MG/DL (70-104); MAGNESIUM 1.7 MG/DL (1.5-2.4); POTASSIUM 3.9 MMOL/L (3.5-5.1); SODIUM 140 MMOL/L (135-145); TOTAL CARBON DIOXIDE 29.7 MMOL/L (24-32); eCRCL 67 ML/MIN; eGFR 72 ML/MIN
[2024-08-29 10:00] VITALS: BP 101/66; PULSE 78; RESP 16; TEMP 98.2; O2SAT 100
[2024-08-29] MEDS: VANCOMYCIN LEVEL IV ONE (13:30)
[2024-08-29 18:00] VITALS: BP 102/66; PULSE 79; RESP 18; TEMP 98.5; O2SAT 96
[2024-08-29 20:00] VITALS: RESP 18; O2SAT 97
[2024-08-29 22:13] VITALS: BP 101/58; PULSE 86; RESP 18; TEMP 98.5; O2SAT 97
[2024-08-30] MEDS: VANCOMYCIN/WATER FOR INJ (PEG) 1.25GM/250 ML IVPB IV SCH (03:14)
[2024-08-30 06:00] VITALS: BP 123/71; PULSE 71; RESP 18; TEMP 97.2; O2SAT 99
[2024-08-30 06:18] LABS: BASOPHILS % (AUTO) 0.7 % (0-1); EOSINOPHILS # (AUTO) 0.3 X10'3 (0-0.9); EOSINOPHILS % (AUTO) 6.3 % (0-6); HEMATOCRIT 39.7 % (35.0-45.0); HEMOGLOBIN 13.3 g/dl (12.0-16.0); LYMPHOCYTES # (AUTO) 1.8 X10'3 (1.1-4.8); LYMPHOCYTES % (AUTO) 37.1 % (21-51); MEAN CORPUSCULAR HGB CONC 33.5 g/dL (33.0-36.5); MEAN CORPUSCULAR VOLUME 92.6 FL (78-98); MEAN PLATELET VOLUME 7.9 FL (7.4-10.4); MONOCYTES # (AUTO) 0.6 X10'3 (0-0.9); MONOCYTES % (AUTO) 11.8 % (2-12); NEUTROPHILS # (AUTO) 2.1 X10'3 (1.8-7.7); NEUTROPHILS % (AUTO) 44.1 % (42-75); PLATELET COUNT 239 X10'3 (140-440); RED BLOOD COUNT 4.29 X10'6 (4.20-5.60); RED CELL DISTRIBUTION WIDTH 13.6 % (11.5-14.5); WHITE BLOOD COUNT 4.8 X10'3 (4.5-11.0)
[2024-08-30 06:36] LABS: ALANINE AMINOTRANSFERASE 74 U/L (12-78); ALBUMIN 2.9 G/DL (3.4-5.0); ALBUMIN/GLOBULIN RATIO 0.9 (1.1-1.5); ALKALINE PHOSPHATASE 89 IU/L (46-116); ANION GAP 5 (8-16); ASPARTATE AMINO TRANSFERASE 34 U/L (10-37); BILIRUBIN,TOTAL 0.2 MG/DL (0.1-1.0); BLOOD UREA NITROGEN 13 MG/DL (7-18); BUN/CREATININE RATIO 17.3 (10.0-20.0); CALCIUM 8.2 MG/DL (8.5-10.1); CHLORIDE 105 MMOL/L (99-107); CREATININE 0.75 MG/DL (0.40-0.90); GLUCOSE 83 MG/DL (70-104); MAGNESIUM 1.7 MG/DL (1.5-2.4); POTASSIUM 4.2 MMOL/L (3.5-5.1); SODIUM 140 MMOL/L (135-145); TOTAL CARBON DIOXIDE 30.1 MMOL/L (24-32); TOTAL PROTEIN 6.3 G/DL (6.4-8.2); eCRCL 75 ML/MIN; eGFR 82 ML/MIN
[2024-08-30 10:00] VITALS: BP 123/61; PULSE 81; RESP 15; TEMP 98.8; O2SAT 100
[2024-08-30 18:00] VITALS: BP 103/67; PULSE 78; RESP 16; TEMP 98; O2SAT 96
[2024-08-30] MEDS: magnesium hydroxide 30ml (MOM) UD suspension PO PRN (21:38)
[2024-08-30 22:00] VITALS: BP 99/66; PULSE 90; RESP 16; TEMP 98.3; O2SAT 100
[2024-08-31 06:00] VITALS: BP 101/65; PULSE 73; RESP 16; TEMP 97.4; O2SAT 96
[2024-08-31 06:42] LABS: BASOPHILS % (AUTO) 0.6 % (0-1); EOSINOPHILS # (AUTO) 0.3 X10'3 (0-0.9); EOSINOPHILS % (AUTO) 7.4 % (0-6); HEMATOCRIT 40.5 % (35.0-45.0); HEMOGLOBIN 13.4 g/dl (12.0-16.0); LYMPHOCYTES # (AUTO) 2.2 X10'3 (1.1-4.8); LYMPHOCYTES % (AUTO) 46.6 % (21-51); MEAN CORPUSCULAR HEMOGLOBIN 30.7 PG (27.0-31.0); MEAN CORPUSCULAR HGB CONC 33.2 g/dL (33.0-36.5); MEAN CORPUSCULAR VOLUME 92.3 FL (78-98); MEAN PLATELET VOLUME 7.7 FL (7.4-10.4); MONOCYTES # (AUTO) 0.5 X10'3 (0-0.9); MONOCYTES % (AUTO) 9.7 % (2-12); NEUTROPHILS # (AUTO) 1.7 X10'3 (1.8-7.7); NEUTROPHILS % (AUTO) 35.7 % (42-75); PLATELET COUNT 252 X10'3 (140-440); RED BLOOD COUNT 4.38 X10'6 (4.20-5.60); RED CELL DISTRIBUTION WIDTH 13.8 % (11.5-14.5); WHITE BLOOD COUNT 4.7 X10'3 (4.5-11.0)
[2024-08-31 06:57] LABS: ALANINE AMINOTRANSFERASE 440 U/L (12-78); ALBUMIN/GLOBULIN RATIO 0.8 (1.1-1.5); ALKALINE PHOSPHATASE 188 IU/L (46-116); ANION GAP 3 (8-16); ASPARTATE AMINO TRANSFERASE 252 U/L (10-37); BILIRUBIN,TOTAL 0.2 MG/DL (0.1-1.0); BLOOD UREA NITROGEN 11 MG/DL (7-18); BUN/CREATININE RATIO 15.1 (10.0-20.0); CALCIUM 8.2 MG/DL (8.5-10.1); CHLORIDE 104 MMOL/L (99-107); CREATININE 0.73 MG/DL (0.40-0.90); GLUCOSE 94 MG/DL (70-104); MAGNESIUM 1.9 MG/DL (1.5-2.4); POTASSIUM 3.8 MMOL/L (3.5-5.1); SODIUM 140 MMOL/L (135-145); TOTAL CARBON DIOXIDE 33.2 MMOL/L (24-32); TOTAL PROTEIN 6.6 G/DL (6.4-8.2); eCRCL 77 ML/MIN; eGFR 85 ML/MIN
[2024-08-31 11:29] VITALS: BP 121/80; PULSE 70; RESP 14; TEMP 98.4; O2SAT 98
[2024-08-31] MEDS: VANCOMYCIN LEVEL IV ONE (13:30)
[2024-08-31] MEDS: CefTRIAXone/D5W-Rocephin 1gm 50 ML IV SCH (17:41)
[2024-08-31 18:00] VITALS: BP 101/64; PULSE 73; RESP 16; TEMP 97; O2SAT 99
[2024-08-31 20:00] VITALS: RESP 16; O2SAT 99
[2024-08-31 22:00] VITALS: BP 103/64; PULSE 79; RESP 16; TEMP 97.7; O2SAT 96
[2024-08-31] MEDS: ciprofloxacin 250mg tablet PO SCH (22:38)
[2024-09-01 06:00] VITALS: BP 139/92; PULSE 67; RESP 15; TEMP 97.8; O2SAT 99
[2024-09-01 07:33] VITALS: RESP 16; O2SAT 98
[2024-09-01 08:49] LABS: BASOPHILS # (AUTO) 0.1 X10'3 (0-0.2); EOSINOPHILS # (AUTO) 0.4 X10'3 (0-0.9); EOSINOPHILS % (AUTO) 6.1 % (0-6); HEMATOCRIT 39.2 % (35.0-45.0); HEMOGLOBIN 13.2 g/dl (12.0-16.0); LYMPHOCYTES # (AUTO) 1.9 X10'3 (1.1-4.8); LYMPHOCYTES % (AUTO) 31.6 % (21-51); MEAN CORPUSCULAR HEMOGLOBIN 31.5 PG (27.0-31.0); MEAN CORPUSCULAR HGB CONC 33.7 g/dL (33.0-36.5); MEAN CORPUSCULAR VOLUME 93.3 FL (78-98); MONOCYTES # (AUTO) 0.2 X10'3 (0-0.9); MONOCYTES % (AUTO) 3.2 % (2-12); NEUTROPHILS # (AUTO) 3.6 X10'3 (1.8-7.7); NEUTROPHILS % (AUTO) 58.1 % (42-75); PLATELET COUNT 216 X10'3 (140-440); RED CELL DISTRIBUTION WIDTH 13.5 % (11.5-14.5); WHITE BLOOD COUNT 6.2 X10'3 (4.5-11.0)
[2024-09-01 09:04] LABS: ALANINE AMINOTRANSFERASE 291 U/L (12-78); ALBUMIN 2.8 G/DL (3.4-5.0); ALBUMIN/GLOBULIN RATIO 0.8 (1.1-1.5); ALKALINE PHOSPHATASE 159 IU/L (46-116); ANION GAP 7 (8-16); ASPARTATE AMINO TRANSFERASE 157 U/L (10-37); BILIRUBIN,TOTAL 0.2 MG/DL (0.1-1.0); BLOOD UREA NITROGEN 14 MG/DL (7-18); BUN/CREATININE RATIO 15.1 (10.0-20.0); CALCIUM 8.1 MG/DL (8.5-10.1); CHLORIDE 106 MMOL/L (99-107); CREATININE 0.93 MG/DL (0.40-0.90); GLUCOSE 115 MG/DL (70-104); POTASSIUM 4.3 MMOL/L (3.5-5.1); SODIUM 140 MMOL/L (135-145); TOTAL CARBON DIOXIDE 27.4 MMOL/L (24-32); TOTAL PROTEIN 6.5 G/DL (6.4-8.2); eCRCL 61 ML/MIN; eGFR 64 ML/MIN
[2024-09-01 10:00] VITALS: BP 99/61; PULSE 75; RESP 16; TEMP 97.7; O2SAT 100
[2024-09-01] MEDS: bisacodyl 10mg suppository rectal RC STA (10:31)
[2024-09-01 18:00] VITALS: BP 90/54; PULSE 78; RESP 14; TEMP 97.6; O2SAT 99
[2024-09-01 22:00] VITALS: BP 109/59; PULSE 74; RESP 15; TEMP 97.9; O2SAT 98
[2024-09-02] MEDS ORDERED: LidoCAINE 2% Topical Jelly 11mL syringe (UROJET) TOP ONE (07:35)
[2024-09-02 08:00] VITALS: RESP 16; O2SAT 96
[2024-09-02 09:14] VITALS: RESP 14; O2SAT 95
[2024-09-02 12:00] VITALS: RESP 16
[2024-09-02] MEDS ORDERED: AMOX-580 PO (16:08)
[2024-09-02] MEDS ORDERED: CIPR250T26 PO (16:08)
[2024-09-02] MEDS ORDERED: amox tr/potassium clavulanate 875/125mg TAB PO SCH (17:30)
== END 2024-09-02 17:40 | disposition home or self-care (01) | DRG 380 ==
LOC: ER 15:46 → ED HOLD 21:33 → EDBEDREQ 08-28 13:02 → ORTHO 4S 08-28 13:40
PROVIDERS: ADMIT Surgery Surgical Critical Care; ATTEND Internal Medicine
PROC: B42G1ZZ Computerized Tomography (CT Scan) of Left Lower Extremity Arteries using Low Osmolar Contrast (ICD-10-PCS; principal; 2024-08-27)
PROC: 05HY33Z Insertion of Infusion Device into Upper Vein, Percutaneous Approach (ICD-10-PCS; 2024-08-31)
PROC: B54MZZA Ultrasonography of Right Upper Extremity Veins, Guidance (ICD-10-PCS; 2024-08-31)
DX: L97.529 Non-pressure chronic ulcer of other part of left foot with unspecified severity (principal); F15.10 Other stimulant abuse, uncomplicated; F17.200 Nicotine dependence, unspecified, uncomplicated; J45.909 Unspecified asthma, uncomplicated; K21.9 Gastro-esophageal reflux disease without esophagitis; F17.210 Nicotine dependence, cigarettes, uncomplicated; Z87.442 Personal history of urinary calculi; Z79.899 Other long term (current) drug therapy
CPT/HCPCS: 36410; 36415; 73610; 73701; 76937; 80053; 80202; 80305; 81001; 81025; 83605; 83735; 83880; 84145; 84703; 85025; 85610; 85651; 85730; 86140; 87040; 87070; 87077; 87081; 87088; 87186; 87502; 87503; 93306; 96365; 96375; 99291; A4649; A6196; A6253; A6446; A6449; C1751; G0378; J0696; J0744; J1644; J2270; J3370; J3372; J3490; J7030; Q9967

== ENCOUNTER 2024-12-19 01:08 | Emergency (ER) | payer MEDICAID ==
[~2024-12-19] VITALS: Ht 157.5 cm; Wt 70.5 kg
[~2024-12-19 01:08] MED LIST changes: +AMOX-580 PO; -CEPH-585 PO; +CIPR-207 PO; +NO HOME MEDS; -RIFA300C65 PO
[2024-12-19 01:13] VITALS: BP 140/78; PULSE 97; RESP 18; TEMP 98.7; O2SAT 99
[2024-12-19 01:39] LABS: BASOPHILS % (AUTO) 0.7 % (0-1); EOSINOPHILS # (AUTO) 0.4 X10'3 (0-0.9); EOSINOPHILS % (AUTO) 6.9 % (0-6); HEMATOCRIT 39.9 % (35.0-45.0); HEMOGLOBIN 13.6 g/dl (12.0-16.0); LYMPHOCYTES # (AUTO) 2.1 X10'3 (1.1-4.8); LYMPHOCYTES % (AUTO) 33.9 % (21-51); MEAN CORPUSCULAR HEMOGLOBIN 30.7 PG (27.0-31.0); MEAN CORPUSCULAR HGB CONC 34.1 g/dL (33.0-36.5); MEAN CORPUSCULAR VOLUME 90.1 FL (78-98); MEAN PLATELET VOLUME 7.6 FL (7.4-10.4); MONOCYTES # (AUTO) 0.5 X10'3 (0-0.9); MONOCYTES % (AUTO) 7.7 % (2-12); NEUTROPHILS # (AUTO) 3.2 X10'3 (1.8-7.7); NEUTROPHILS % (AUTO) 50.8 % (42-75); PLATELET COUNT 293 X10'3 (140-440); RED BLOOD COUNT 4.43 X10'6 (4.20-5.60); RED CELL DISTRIBUTION WIDTH 13.1 % (11.5-14.5); WHITE BLOOD COUNT 6.3 X10'3 (4.5-11.0)
[2024-12-19 01:55] LABS: ALANINE AMINOTRANSFERASE 25 U/L (12-78); ALBUMIN 3.8 G/DL (3.4-5.0); ALKALINE PHOSPHATASE 95 IU/L (46-116); ANION GAP 5 (8-16); ASPARTATE AMINO TRANSFERASE 19 U/L (10-37); BILIRUBIN,TOTAL 0.2 MG/DL (0.1-1.0); BLOOD UREA NITROGEN 13 MG/DL (7-18); BUN/CREATININE RATIO 11.7 (10.0-20.0); CALCIUM 8.7 MG/DL (8.5-10.1); CHLORIDE 105 MMOL/L (99-107); CREATININE 1.11 MG/DL (0.40-0.90); GLUCOSE 104 MG/DL (70-104); LIPASE 58 U/L (16-77); POTASSIUM 3.8 MMOL/L (3.5-5.1); SODIUM 142 MMOL/L (135-145); TOTAL CARBON DIOXIDE 32.4 MMOL/L (24-32); TOTAL PROTEIN 7.8 G/DL (6.4-8.2); eCRCL 48 ML/MIN; eGFR 52 ML/MIN
== END 2024-12-19 02:55 | disposition left against medical advice (07) ==
LOC: ER 01:13
DX: R10.9 Unspecified abdominal pain (principal); R53.1 Weakness; R53.81 Other malaise; Z53.21 Procedure and treatment not carried out due to patient leaving prior to being seen by health care provider; Z88.1 Allergy status to other antibiotic agents; Z88.5 Allergy status to narcotic agent
CPT/HCPCS: 36415; 80053; 83690; 85025

== ENCOUNTER 2024-12-24 09:35 | Emergency (ER) | payer MEDICAID ==
[~2024-12-24] VITALS: Ht 157.5 cm; Wt 71.7 kg
[2024-12-24 09:42] VITALS: BP 152/83; PULSE 95; TEMP 97.8; O2SAT 99
--- NOTE | 2024-12-24 10:03 | Physician Documentation ---
History of Present Illness ~ Chief Complaint: Sore Throat Stated Complaint: SORE THROAT Time Seen by MD: 09:57 Primary Medical Doctor: None HPI This is a 51-year-old female who presents with one day of sore throat without cough, patient reports subjective fever. Reports no other acute symptoms or concerns. Medication Reconciliation Allergies: Coded Allergies: cephalexin (Verified Allergy, Unknown, 12/19/24) codeine (Unverified Adverse Reaction, Mild, 12/19/24) VIOLENT Scheduled Amox Tr/Potassium Clavulanate 875/125 MG (Augmentin 875/125 MG), 1 TAB PO BID@0830,1730 Ciprofloxacin HCl (Ciprofloxacin HCl), 750 MG PO BIDQ Miscellaneous Medications Home Med List (No Home Medications), (Reported) Past Medical History Past Medical History: Asthma, GERD, Kidney Stones, UTI Past Surgical History: cholecystectomy, , tubal ligation, other Other Past Surgical History: Ureteral surgery Patient History: Patient reports no known family medical history. Alcohol Use: Occasionally Drug Use: methamphetamine Lives with: Family Lives In: Home Review of Systems ROS Sore throat as stated above in the HPI, otherwise all systems are reviewed and negative. Physical Exam Vital Signs: Temperature: 97.8, Source: Oral, Heart Rate: 95, Respiratory Rate: 16, BP: 152/83, Pulse Oximetry: 99, Weight: 71.700 Physical Exam VITALS: Reviewed and as above. GENERAL: Alert, nontoxic appearing, no apparent distress. HEENT: Uvula midline, pharynx mildly erythematous, no tonsillar swelling, no patches or exudates, no cervical lymphadenopathy, no submandibular swelling, no elevation of the tongue RESPIRATORY: No increased work of breathing, no respiratory distress, speaking in full clear sentences Progress Results/Orders Results/Orders Completed Orders - DEVONTE GRIMES PRICING DIRECTOR Dexamethasone Inj (Decadron 10mg/Ml Inj) (12/24/24 10:03) Vital Signs 12/24/24 12/24/24 09:42 10:26 Temp 97.8 Pulse 95 Resp 16 16 B/P (MAP) 152/83 Pulse Ox 99 Medical Decision Making Findings This otherwise healthy, well appearing 49-year-old female presented with sore throat with no tonsillar swelling or exudates on physical exam consistent with uncomplicated pharyngitis likely of viral origin. I have low clinical suspicion for peritonsillar abscess, uvulitis, or deep tissue space infection of the neck due to no muffled voice or drooling, uvula midline. Centor score one indicating very low likelihood of strep pharyngitis therefore rapid strep swab not indicated. Additionally reassuring for no lesions or vesicles within the mouth or pharynx. Physical exam is otherwise benign, patient is non-toxic and well-appearing, afebrile, hemodynamically stable, non-tachypneic, non-tachycardic, and room air SpO2 of 99% interpreted as normal and adequate. Throat Diff Dx: Considerations: Include: Epiglottitis, Esophageal candidiasis, Hand foot mouth disease, Herpangina, Herpetic stomatitis, Herpes simplex, Infection mononucleosis, Cam's angina, Peritonsillar abscess, Peritonsillar cellulitis, Pharyngitis-strepococcal, Thrush, URI Departure Disposition: HOME / SELF CARE / HOMELESS Impression: Primary Impression: Sore throat Condition: Improved Discharge Instructions: Sore Throat Additional Instructions: This appears to be a viral illness, though if you do develop white patches in your throat please return to the emergency department for your choice of medical provider for re-evaluation. You may use ibuprofen and or Tylenol as needed for pain and fever as directed by [id number] packaging. Warm fluids and honey may also help. Please follow up with your primary care provider in the next few days. Please return to the emergency department for any new or worsening concerning symptoms including but not limited to the inability to swallow, difficulty breathing, or a fever over 100.4 that does not lower with ibuprofen or Tylenol. Referrals: NO PRIMARY CARE PROVIDER (PCP) Education Educated: Patient Educated regarding: diagnosis, treatment, prognosis, need for follow up Signature Scribe Signature: No scribe Attestation: The note accurately reflects work and decisions made by me.ALONSO Patrick 12/24/24 20:04 DEVONTE GRIMES Dec 24, 2024 10:03
[2024-12-24 10:26] VITALS: RESP 16
[2024-12-24] MEDS: dexamethasone sod phosphate 10mg/ml inj PO STA (10:35)
== END 2024-12-24 10:39 | disposition home or self-care (01) ==
LOC: ER 09:36
DX: J02.9 Acute pharyngitis, unspecified (principal); J45.909 Unspecified asthma, uncomplicated; K21.9 Gastro-esophageal reflux disease without esophagitis; F15.90 Other stimulant use, unspecified, uncomplicated; Z87.440 Personal history of urinary (tract) infections; Z88.1 Allergy status to other antibiotic agents; Z88.5 Allergy status to narcotic agent; Z90.49 Acquired absence of other specified parts of digestive tract; Z98.51 Tubal ligation status
CPT/HCPCS: 99283; J1100

== ENCOUNTER 2025-03-15 20:15 | Emergency (ER) | payer MEDICAID ==
[~2025-03-15] VITALS: Ht 157.5 cm; Wt 73.4 kg
--- NOTE | 2025-03-15 21:05 | Physician Documentation ---
History of Present Illness Chief Complaint: Multiple Medical Complaints Stated Complaint: FLU SYMPTOMS Time Seen by MD: 20:35 Primary Medical Doctor: None HPI 49-year-old female presents to the ED with a complaint of three days of abdominal pain and explosive diarrhea. Denies fevers or nausea vomiting. Day of Onset: Mar 15, 2025 Medication Reconciliation Allergies: Coded Allergies: cephalexin (Verified Allergy, Unknown, 12/19/24) codeine (Unverified Adverse Reaction, Mild, 12/19/24) VIOLENT Scheduled Amox Tr/Potassium Clavulanate 875/125 MG (Augmentin 875/125 MG), 1 TAB PO BID@0830,1730 Ciprofloxacin HCl (Ciprofloxacin HCl), 750 MG PO BIDQ Loperamide Hcl (Loperamide), 2 CAP PO Q6H Sulfamethoxazole/Trimethoprim (Bactrim 400-80 Mg Tablet), 1 TAB PO Q12H Miscellaneous Medications Home Med List (No Home Medications), (Reported) Past Medical History Past Medical History: Asthma, GERD, Kidney Stones, UTI Past Surgical History: cholecystectomy, , tubal ligation, other Other Past Surgical History: Ureteral surgery Patient History: Patient reports no known family medical history. Alcohol Use: Occasionally Drug Use: methamphetamine Lives with: Family Lives In: Home Review of Systems All Other Systems at this time: Reviewed and Negative ROS As stated above in the HPI, otherwise all systems are reviewed and negative. Physical Exam Vital Signs: Temperature: 97.5, Heart Rate: 87, Respiratory Rate: 16, BP: 108/56, Pulse Oximetry: 100, Weight: 73.400 Oxygen Flow Rate: 0 Physical Exam General: Alert, no apparent distress. Respiratory: Lungs clear, no respiratory distress. Cardiovascular: Regular rate and rhythm, no murmurs. Gastrointestinal: Soft, tendmid epigastric Neurologic: Oriented x4. Psychiatric: Normal mood and affect. Skin: Normal color, warm and dry. No edema, no ecchymosis. Progress Results/Orders Results/Orders Vital Signs 03/15/25 20:29 Temp 97.5 Pulse 87 Resp 16 B/P (MAP) 108/56 Pulse Ox 100 O2 Flow Rate 0 Laboratory Tests Test 03/15/25 20:52 Medical Decision Making Findings Patient initially presented with complaints of diarrhea. She also tested positive for a UTI. Her laboratory results did not indicate any signs of infectious process. did not have any electrolyte imbalances and her lab results I did treat her with a Bactrim than Imodium ID. Told her if she continues to have diarrhea to return to the ED. I also advised her to maintain adequate hydration Differential Dx:Considerations: Include: AAA, -Complete, - Incomplete, -Inevitable, -Missed, -Threatened, Abruptio placentae, Angina/MO, Aortic dissection, Appendicitis, Bowel obstruction, Cholangitis, Cholelithasis, Constipation, Diverticular disease, Esophageal rupture, Esophagitis, Gastritis/PUD, Gastroenteritis, GI hemorrhage, Hernia, Hepatitis, Inflammatory BD, Ischemic bowel, Ovarian cyst/torsion, Pancreatitis, PID, Porphyria, Trauma, intraabdominal, Urinary obstruction, Urinary tract infection, Urolithiasis, Other Departure Disposition: HOME / SELF CARE / HOMELESS Impression: Primary Impression: Diarrhea Additional Impressions: UTI (urinary tract infection) Abdominal pain Referrals: NO PRIMARY CARE PROVIDER (PCP) Prescriptions Loperamide Hcl (Loperamide) 2 Mg Capsule 2 CAP PO Q6H for loose stool for 5 Days, #40 CAP 0 Refills Prov: AYDIN JONAS NP 03/15/25 Sulfamethoxazole/Trimethoprim (Bactrim 400-80 Mg Tablet) 400 Mg-80 Mg Tablet 1 TAB PO Q12H for 7 Days, #14 TAB Prov: AYDIN JONAS NP 03/15/25 Signature Scribe Signature: r Attestation: Scribed for Aydin Jonas Np by Aydin Birmingham NP . 03/15/25 23:06 AYDIN JONAS NP Mar 15, 2025 21:05
[2025-03-15 21:06] LABS: LEUKOCYTE ESTERASE ,URINE SMALL (Neg); NITRITES, URINE NEGATIVE (Neg); OCCULT BLOOD,URINE NEGATIVE (Neg)
[2025-03-15 21:07] LABS: UA COLLECTION TYPE CLN CATCH MIDSTREAM
[2025-03-15 21:13] LABS: SQUAMOUS EPITHELIAL CELL,UR FEW /LPF (FEW)
[2025-03-15 21:23] LABS: CREATININE 1.10 MG/DL (0.40-0.90); TOTAL CARBON DIOXIDE 27.6 MMOL/L (24-32); eCRCL 48 ML/MIN; eGFR 53 ML/MIN
[2025-03-15 21:44] LABS: MEAN PLATELET VOLUME 8.4 FL (7.4-10.4); RED CELL DISTRIBUTION WIDTH 13.0 % (11.5-14.5)
[2025-03-15] MEDS ORDERED: SULF1TAB48 PO (21:46)
[2025-03-15] MEDS ORDERED: LOPE2CAP PO (21:47)
[2025-03-15 22:02] VITALS: BP 110/73; PULSE 76; RESP 18; TEMP 97.5; O2SAT 96
== END 2025-03-15 22:03 | disposition home or self-care (01) ==
LOC: ER 20:16
DX: N39.0 Urinary tract infection, site not specified (principal); R19.7 Diarrhea, unspecified; J45.909 Unspecified asthma, uncomplicated; F15.90 Other stimulant use, unspecified, uncomplicated; K21.9 Gastro-esophageal reflux disease without esophagitis; Z88.5 Allergy status to narcotic agent; Z88.1 Allergy status to other antibiotic agents; Z98.51 Tubal ligation status; Z90.49 Acquired absence of other specified parts of digestive tract; Z87.442 Personal history of urinary calculi; Z72.89 Other problems related to lifestyle; Z87.440 Personal history of urinary (tract) infections
CPT/HCPCS: 36415; 80053; 81001; 83690; 85025; 87088; 87186; 99283

== ENCOUNTER 2025-04-14 21:28 | Emergency (ER) | payer MEDICAID ==
[~2025-04-14] VITALS: Ht 157.5 cm; Wt 65.0 kg
[~2025-04-14 21:28] MED LIST changes: +LOPE2CAP PO
[2025-04-14 21:53] VITALS: BP 122/75; PULSE 100; RESP 15; O2SAT 96
[2025-04-14 22:17] LABS: LEUKOCYTE ESTERASE ,URINE NEGATIVE (Neg); NITRITES, URINE POSITIVE (Neg); OCCULT BLOOD,URINE NEGATIVE (Neg)
[2025-04-14 22:21] LABS: UA COLLECTION TYPE CLN CATCH MIDSTREAM
[2025-04-14 22:23] LABS: INFLUENZA TYPE A ANTIGEN RAPID NEGATIVE (Negative); INFLUENZA TYPE B ANTIGEN RAPID NEGATIVE (Negative)
[2025-04-14 22:23] LABS: MUCUS STRANDS NONE SEEN /LPF (Neg); SQUAMOUS EPITHELIAL CELL,UR FEW /LPF (FEW)
--- NOTE | 2025-04-14 23:55 | Physician Documentation ---
History of Present Illness ~ Chief Complaint: Cold, cough & congestion Stated Complaint: KIDNEY PAIN Time Seen by MD: 22:26 Primary Medical Doctor: None HPI Patient 49-year-old female that presents to the emergency department for evaluation of fever cough cold congestion mild nausea and vomiting times 3 days. Patient reports she has all over body aches and feels like she has the flu. Patient denies any dysuria abdominal pain blood in her urine blood in her stool difficulty breathing shortness of breath chest pain or any other concerning symptoms at this time. Medication Reconciliation Allergies: Coded Allergies: cephalexin (Verified Allergy, Unknown, 04/14/25) codeine (Unverified Adverse Reaction, Mild, 04/14/25) VIOLENT Scheduled Amox Tr/Potassium Clavulanate 875/125 MG (Augmentin 875/125 MG), 1 TAB PO BID@0830,1730 Ciprofloxacin HCl (Ciprofloxacin HCl), 750 MG PO BIDQ Loperamide Hcl (Loperamide), 2 CAP PO Q6H Miscellaneous Medications Home Med List (No Home Medications), (Reported) Past Medical History Past Medical History: Asthma, GERD, Kidney Stones, UTI Past Surgical History: cholecystectomy, , tubal ligation, other Other Past Surgical History: Ureteral surgery Patient History: Patient reports no known family medical history. Alcohol Use: Occasionally Drug Use: methamphetamine Lives with: Family Lives In: Home Review of Systems ROS As stated above in the HPI, otherwise all systems are reviewed and negative. Physical Exam Vital Signs: Temperature: 96.4, Source: Temporal, Heart Rate: 100, Respiratory Rate: 15, BP: 122/75, Pulse Oximetry: 96, Weight: 65.000 Physical Exam VITALS: Reviewed and as above. GENERAL: Alert, no apparent distress. HEENT: Normocephalic, atraumatic, PERRL, EOMI, dry mucosa, no erythema RESPIRATORY: Lungs clear, normal breath sounds, no respiratory distress. CHEST: No accessory muscle use, no retractions, moving air well into the lower bases bilaterally, no inspiratory expiratory wheezes or rhonchi noted. CV: Regular rate, rhythm, no edema, no murmur, No: JVD GI: Soft, non-tender, bowels sounds present, no rebound, guarding, or rigidity BACK: No CVA tenderness, or swelling MUSCULOSKELETAL No deformities, no edema SKIN: Warm and dry, no rash NEURO: Oriented x4, No motor or sensory deficit PSYCH: Normal mood and affect, no agitation Progress Results/Orders Results/Orders Orders - ALEENA FUCHS PACKAGING DESIGNER Covid19 Binax Poc Result Entry (04/14/25 21:59) Cult Urine + [address] (04/14/25 22:23) Completed Orders - ALEENA FUCHS Influenza Type A&B Rapid Test (04/14/25 21:59) Ua W/Microscopic, Cult If Ind (04/14/25 22:00) Acetaminophen 325mg Tablet (Tylenol Tabl (04/14/25 23:45) Ibuprofen Tablet (Motrin Tablet) (04/14/25 23:45) Vital Signs 04/14/25 21:53 Temp 96.4 Pulse 100 Resp 15 B/P (MAP) 122/75 Pulse Ox 96 Laboratory Tests Test 04/14/25 21:55 04/14/25 22:00 Influenza Type A Antigen Negative Influenza Type B Antigen Negative SARS-CoV-2 Antigen (Rapid) Negative Urine Specimen Description Cln catch midstream Urine Color Yellow Urine Clarity Cloudy Urine pH 7.0 Urine Specific [place] 1.015 Urine Protein Negative Urine Glucose (UA) Negative Urine Ketones Negative Urine Occult Blood Negative Urine Nitrite Positive H Urine Bilirubin Negative Urine Urobilinogen 0.2 Urine Leukocyte Esterase Negative Urine RBC 3-10 Urine WBC 10-20 H Urine Squamous Epithelial Cells Few Urine Bacteria 4+ Urine Mucus None seen Urine Culture Indicated Indicated Volume Urine Centrifuged 10 ml Urine Comment Microbiology Date/Time Source Procedure Growth Status 04/14/25 22:23 Urine Clean Catch Midstream Urine Culture - Preliminary Culture received. Resulted Medical Decision Making Additional information obtaine: other Findings This patient presents with symptoms suspicious for likely viral upper respiratory infection. Based on history and physical doubt sinusitis. COVID tests were sent with negative results at this time. Do not suspect underlying cardiopulmonary process. I considered, but think unlikely, dangerous causes of t his patients symptoms to include ACS, CHF or COPD exacerbations, pneumonia, pneumothorax. Patient is nontoxic appearing and not in need of emergent medical intervention. Patient told to self isolate at home until symptoms subside for 72 hours, until she is fever free without the use of antipyretics for at least 24 hours. Educated patient on the need to increase her fluid intake and rest as tolerated. Patient will follow up with the primary care provider. Return to the emergency department with any worsening or recurrent symptoms or any additional concerning symptoms that we discussed here today i.e. increased nausea and vomiting unable to keep liquids down fevers that are unresponsive to Tylenol ibuprofen severe abdominal pain severe diarrhea fever chills or any resolution of symptoms beyond 5-7 days or any other symptoms that we discussed here today. Differential Dx:Considerations: Include: Allergic rhinitis, Influenza, Otitis media, Peritonsillar abscess, Pharyngitis-Diphtheria, Pharyngitis-Streptoccal, Pharyngitis-Viral, Pneumonia, Pnuemonitis, Sinusitis, URI, Other Departure Disposition: HOME / SELF CARE / HOMELESS Impression: Primary Impression: Acute respiratory infection Additional Impression: Upper respiratory infection Discharge Instructions: Upper Respiratory Infection, Adult Additional Instructions: This patient presents with symptoms suspicious for likely viral upper respiratory infection. Based on history and physical doubt sinusitis. COVID quinton ts were sent with negative results at this time. Do not suspect underlying cardiopulmonary process. I considered, but think unlikely, dangerous causes of this patients symptoms to include ACS, CHF or COPD exacerbations, pneumonia, pneumothorax. Patient is nontoxic appearing and not in need of emergent medical intervention. Patient told to self isolate at home until symptoms subside for 72 hours, until she is fever free without the use of antipyretics for at least 24 hours. Educated patient on the need to increase her fluid intake and rest as tolerated. Patient will follow up with the primary care provider. Return to the emergency department with any worsening or recurrent symptoms or any additional concerning symptoms that we discussed here today i.e. increased nausea and vomiting unable to keep liquids down fevers that are unresponsive to Tylenol ibuprofen severe abdominal pain severe diarrhea fever chills or any resolution of symptoms beyond 5-7 days or any other symptoms that we discussed here today. Tylenol ibuprofen as needed for discomfort. Please increase your fluids as tolerated. Please follow up with her primary care provider. Please return to the emergency department if any worsening or recurrent symptoms or any additional concerning symptoms that we discussed here today. Referrals: NO PRIMARY CARE PROVIDER (PCP) Education Educated: Patient Educated regarding: diagnosis, treatment, need for follow up Signature Scribe Signature: A Attestation: Scribed for Aleena Fuchs by ALONSO Allen . 04/14/25 23:56 ALEENA FUCHS Apr 14, 2025 23:54
[2025-04-15 00:03] VITALS: TEMP 96.4
[2025-04-15] MEDS: ibuprofen tablet 400 MG TABLET PO ONE (00:10)
== END 2025-04-15 00:11 | disposition home or self-care (01) ==
LOC: ER 21:29
DX: J06.9 Acute upper respiratory infection, unspecified (principal); K21.9 Gastro-esophageal reflux disease without esophagitis; J45.909 Unspecified asthma, uncomplicated; Z87.440 Personal history of urinary (tract) infections; F15.90 Other stimulant use, unspecified, uncomplicated; Z88.1 Allergy status to other antibiotic agents; Z88.5 Allergy status to narcotic agent; Z90.49 Acquired absence of other specified parts of digestive tract; Z98.51 Tubal ligation status; Z20.822 Contact with and (suspected) exposure to COVID-19
CPT/HCPCS: 36415; 81001; 87088; 87186; 87804; 87811; 99283